=== PATIENT | male | born 1995 | race African-American/Black ===

== ENCOUNTER 2016-04-02 10:02 | Inpatient (IN) | payer OTHER ==
[~2016-04-02] VITALS: Ht 182.9 cm; Wt 69.9 kg
--- NOTE | 2016-04-02 10:39 | ED GI/GU/ABDOMINAL COMPLAINT ---
History of Present Illness General Chief Complaint: Nausea, Vomiting, Diarrhea Stated Complaint: N/V/D Source: patient Exam Limitations: no limitations Allergies Coded Allergies: NO KNOWN ALLERGIES (04/27/13) Reconcile Medications No Known Home Medications Triage Note: 21 YEAR OLD MALE STATES THAT HE HAS HAD N/V/D SINCE SATURDAY AND UNABLE TO EAT OR LAY DOWN WITHOUT VOMITTING, PT STATES THAT HE HAS SPEROCYTOSIS WHICH IS A PROBLEM WITH HIS SPLEEN, PT HAS BEEN HAVING PAIN L SIDE ABD THAT RADIATES UP HIS L SIDE BACK INTO HIS R SHOULDER. SKIN AND SCLERA NOTED TO BE JAUNDICE Triage Nurses Notes Reviewed? yes Onset: Abrupt Duration: day(s): Timing: recent history Quality/Severity: cramping, moderate, severe Location: left upper quadrant Radiation: back, left shoulder Activities at Onset: none No Modifying Factors: none HPI: 21-year-old male comes into emergency room for further evaluation of nausea vomiting diarrhea and has been going on for the past 4 days. Patient has a history of hereditary spherocytosis. Some associated fever chills body aches. Denies any blood in his stool. Denies any urinary symptoms. Denies any other associated symptoms. (YOLANDA KINCAID) Vital Signs & Intake/Output Vital Signs & Intake/Output Vital Signs Date Time Temp Pulse Resp B/P Pulse O2 O2 Flow FiO2 Ox Delivery Rate 04/02 1418 99.6 64 18 145/71 100 04/02 1021 98.4 80 18 149/84 99 Room Air Past History Travel History Traveled to [place] past 21 day No Medical History Any Pertinent Medical History? see below for history Neurological: NONE EENT: NONE Cardiovascular: NONE Respiratory: NONE Gastrointestinal: SPHEROCYTOSIS Hepatic: NONE Renal: NONE Musculoskeletal: NONE Psychiatric: NONE Endocrine: NONE Blood Disorders: NONE Cancer(s): NONE PULP MIXER/Reproductive: NONE Surgical History Surgical History: non-contributory Psychosocial History What is your primary language Greenlandic Tobacco Use: Current Not Daily ETOH Use: denies use Illicit Drug Use: denies illicit drug use Family History Hx Contributory? No (YOLANDA KINCAID) Review of Systems Review of Systems Constitutional: Reports: no symptoms. EENTM: Reports: no symptoms. Respiratory: Reports: no symptoms. Cardiovascular: Reports: no symptoms. GI: Reports: see HPI. Genitourinary: Reports: no symptoms. Musculoskeletal: Reports: no symptoms. Skin: Reports: no symptoms. Neurological/Psychological: Reports: no symptoms. Hematologic/Endocrine: Reports: no symptoms. Immunologic/Allergic: Reports: no symptoms. All Other Systems: Reviewed and Negative (YOLANDA KINCAID) Physical Exam Physical Exam General Appearance: well developed/nourished, no apparent distress, alert Head: atraumatic, normal appearance Eyes: Bilateral: normal appearance, EOMI. Ears, Nose, Throat, Mouth: hearing grossly normal, moist mucous membrane Neck: normal inspection, full range of motion Respiratory: normal breath sounds, no respiratory distress Cardiovascular: regular rate/rhythm Gastrointestinal: normal bowel sounds, soft, tenderness (luq,no splenomegaly appreciate) Back: normal inspection Extremities: normal range of motion Neurologic/Psych: awake, alert, oriented x 3, normal gait Skin: intact, normal color Core Measures ACS in differential dx? No Severe Sepsis Present: No Septic Shock Present: No (YOLANDA KINCAID) Progress Differential Diagnosis: biliary colic, bowel obstruction, cholecystitis, diverticulitis, epididymitis, gastritis, hepatitis, pancreatitis, prostatitis, peptic ulcer, PUD/GERD, perforated viscous, pyelonephritis, SBO, testicular torsion, ureterolithiasis, urinary retention, urethritis, UTI/pyelo Initial ED EKG: none (YOLANDA KINCAID) Plan of Care: Orders Procedure Date/time Status US-COMPLETE ABDOMEN 04/02 1601 Active URINALYSIS 04/02 1545 Active Add-on Test (ER Only) 04/02 1213 Active Add-on Test (ER Only) 04/02 1150 Active TYPE & SCREEN (NOT X-MATCH) 04/02 1150 Complete Add-on Test (ER Only) 04/02 1137 Active RETICULOCYTE COUNT 04/02 1051 Complete LACTIC ACID 04/02 1051 Complete DIRECT BILIRUBIN 04/02 1051 Complete LIPASE 04/02 1035 Complete COMPREHENSIVE METABOLIC PANEL 04/02 1035 Complete CBC WITHOUT DIFFERENTIAL 04/02 1035 Complete AMYLASE 04/02 1035 Complete Laboratory Tests 04/02/16 1051: Anion Gap 11, Estimated GFR > 60, BUN/Creatinine Ratio 16.3, Glucose 99, Lactic Acid 1.0, Calcium 8.9, Total Bilirubin 4.6 H, Direct Bilirubin 0.8 H, AST 89 H, ALT 27, Alkaline Phosphatase 41, Total Protein 7.2, Albumin 4.3, Globulin 2.9 , Albumin/Globulin Ratio 1.5, Amylase 65, Lipase 94, CBC w Diff NO MAN DIFF REQ, RBC 2.79 L, MCV 78.4 L, MCH 27.9, RDW 21.7 H, MPV 10.7 H, Gran % 72.4, Lymphocytes % 16.4 L, Monocytes % 10.4 H, Eosinophils % 0.6, Basophils % 0.2, Absolute Granulocytes 5.7, Absolute Lymphocytes 1.3, Absolute Monocytes 0.8 H, Absolute Eosinophils 0, Absolute Basophils 0, PUBS MCHC 35.6, Retic Count 5.49 H Departure Departure Disposition: STILL A PATIENT Condition: Stable Clinical Impression Primary Impression: Symptomatic anemia Secondary Impressions: Dehydration, Hyponatremia, Thrombocytopenia Referrals: CEDRIC AMBRIZ MD Departure Forms: Customer Survey General Discharge Information Prescriptions: Current Visit Scripts No Known Home Medications Admission Note Spoke With: EBENEZER GONZALEZ,JEROME Documentation of Exam: Documentation of any treatments & extenuating circumstances including Concerns Regarding Discharge (functional status, medication knowledge or non-compliance, living conditions, etc.) that warrant an admission rather than observation: Pt will require IV fluids. IV pain control. Repeat labs. Hematology oncology consultation. Patient may require blood transfusion. High risk. Patient has no follow-up. (YOLANDA KINCAID) PA/MANAGER BASKETBALL Co-Sign Statement Statement: ED Attending supervision documentation- [] I saw and evaluated the patient. I have also reviewed all the pertinent lab results and diagnostic results. I agree with the findings and the plan of care as documented in the PA's/MANAGER BASKETBALL's documentation. [X] I have reviewed the ED Record and agree with the PA's/MANAGER BASKETBALL's documentation. [] Additions or exceptions (if any) to the PAs/MANAGER BASKETBALL's note and plan are summarized below: [] (CAROLIN GONZALEZ,LAURA Chaidez)
[2016-04-02 11:14] LABS: ABSOLUTE BASOPHIL COUNT 0 /CUMM (0.0-0.2); ABSOLUTE EOSINOPHIL COUNT 0 /CUMM (0.0-0.7); BASOPHIL % 0.2 % (0.0-2.0); EOSINOPHIL % 0.6 % (0-5); HEMATOCRIT 21.8 % (42-52); MEAN CORPUSCULAR HGB 27.9 PG (27.0-31.0); MEAN CORPUSCULAR HGB CONC 35.6 G/DL (33.0-37.0); MEAN CORPUSCULAR VOLUME 78.4 FL (80.0-94.0); MEAN PLATELET VOLUME 10.7 FL (7.4-10.4); RBC DISTRIBUTION WIDTH 21.7 % (11.5-14.5); RED BLOOD CELL CT 2.79 /CUMM (4.70-6.10); WHITE BLOOD CELL COUNT 7.9 /CUMM (4.8-10.8)
[2016-04-02 11:29] LABS: ABSOLUTE GRANULOCYTE CT 5.7 /CUMM (1.4-6.5); ABSOLUTE LYMPH COUNT 1.3 /CUMM (1.2-3.4); ABSOLUTE MONOCYTE COUNT 0.8 /CUMM (0.10-0.60)
[2016-04-02 11:34] LABS: PLATELET COUNT 113 /CUMM (130-400)
[2016-04-02 11:35] LABS: GRANULOCYTE % 72.4 % (42.2-75.2)
--- NOTE | 2016-04-02 16:05 | History & Physical ---
YURIY GONZALEZ,LORENZO 04/02/16 1605: General Information and HPI MD Statement: I have seen and personally examined MENG UMAÑA and documented this H&P. The patient is a 21 year old M who presented with sore throat, fever, nausea, vomiting. Source of Information: patient Exam Limitations: no limitations History of Present Illness: 21 yo M with pmh of heriditary spherocytosis came into the emergency department with complaints of sore throat, nausea, vomiting, diarrhea, fever since . According to the patient, patient was in his usual state of health until 10 PM, when he started having sore throat. Later on during the night, he started having nausea and vomiting almost 30 times, which was thin, watery, greenish, nonbloody, associated with 7/10 abdominal pain on the left side of his abdomen. He vomited twice yesterday, and once today. Since then, he also started having loose stools, multiple times, nonbloody, watery in consistency. All this was associated with fever, max temperature not measured, and chills. He also mentions that he has nonproductive cough. On questioning, he admitted to having shortness of breath when he walked even for a few meters, which went away upon resting. It was also associated with palpitation. But no chest pain, chest discomfort or chest heaviness. He denied any headache, dizziness, runny nose, ear pain, ear discharge, nasal congestion, hoarseness of voice, difficulty urinating, change in color or consistency of urine, or swelling of legs. No sick contacts, although his siblings have started catching up symptoms of nausea, vomiting, fever since today. No history of recent travel. No recent medication. Of note he hasn't seen a primary care physician since he turned 18, and does not have a scout executive to follow. His last hospital visit was at [facility] for strep throat. Family history of Sickle Cell Disease (Father, ). Allergies/Medications Allergies: Coded Allergies: NO KNOWN ALLERGIES (04/27/13) Home Med list No Known Home Medications Past History Travel History Traveled to [place] past 21 day No Medical History Neurological: NONE EENT: NONE Cardiovascular: NONE Respiratory: NONE Gastrointestinal: SPHEROCYTOSIS Hepatic: NONE Renal: NONE Musculoskeletal: NONE Psychiatric: NONE Endocrine: NONE Blood Disorders: NONE Cancer(s): NONE GAME SHOW HOST/Reproductive: NONE Surgical History Surgical History: non-contributory Past Family/Social History Psychosocial History Where do you live? Home Who Do You Live With? parent, siblings Primary Language: Danish Smoking Status: Current Everyday Smoker (1 pack year smoking history) ETOH Use: occasional use (rum or beer occassionally) Illicit Drug Use: marijuana (daily) Functional Ability ADLs Independent: dressing, eating, toileting, bathing. Ambulation: independent IADLs Independent: shopping, housework, finances, food prep, telephone, transportation , medication admin. Sexual History Sexually Active Yes Review of Systems Review of Systems Constitutional: Reports: see HPI, chills, diaphoresis, fever, malaise, weakness. Denies: unexplained weight loss. EENTM: Reports: no symptoms, throat pain (on ). Cardiovascular: Reports: palpitations. Denies: chest pain, edema, orthopena, peripheral edema, syncope. Respiratory: Reports: cough, short of breath (on short walks few metres). Denies: hemoptysis , orthopnea, sputum production, stridor, wheezing. GI: Reports: abdominal pain (left side), diarrhea, nausea, changes in stool, vomiting. Denies: bloating, constipation, distention, melena, bloody stool. Genitourinary: Reports: no symptoms. Denies: dysuria, frequency, hematuria, hesitation. Musculoskeletal: Reports: see HPI, joint pain, muscle pain. Skin: Reports: no symptoms. Neurological/Psychological: Reports: no symptoms. Hematologic/Endocrine: Reports: no symptoms. Immunologic/Allergic: Denies: splenectomy, lymphadenopathy. All Other Systems: Reviewed and Negative Exam & Diagnostic Data Last 24 Hrs of Vital Signs/I&O Vital Signs Date Time Temp Pulse Resp B/P Pulse O2 O2 Flow FiO2 Ox Delivery Rate 04/02 1418 99.6 64 18 145/71 100 04/02 1021 98.4 80 18 149/84 99 Room Air Intake & Output 04/02 1600 04/02 0800 04/02 0000 Intake Total 1000 Output Total Balance 1000 Intake, IV 1000 Patient 70.307 kg Weight Physical Exam General Appearance Alert, Oriented X3, Cooperative, No Acute Distress Last 24 Hrs of Labs/Zeus: Laboratory Tests 04/02/16 1051: Anion Gap 11, Estimated GFR > 60, BUN/Creatinine Ratio 16.3, Glucose 99, Lactic Acid 1.0, Calcium 8.9, Total Bilirubin 4.6 H, Direct Bilirubin 0.8 H, AST 89 H, ALT 27, Alkaline Phosphatase 41, Total Protein 7.2, Albumin 4.3, Globulin 2.9 , Albumin/Globulin Ratio 1.5, Amylase 65, Lipase 94, CBC w Diff NO MAN DIFF REQ, RBC 2.79 L, MCV 78.4 L, MCH 27.9, RDW 21.7 H, MPV 10.7 H, Gran % 72.4, Lymphocytes % 16.4 L, Monocytes % 10.4 H, Eosinophils % 0.6, Basophils % 0.2, Absolute Granulocytes 5.7, Absolute Lymphocytes 1.3, Absolute Monocytes 0.8 H, Absolute Eosinophils 0, Absolute Basophils 0, PUBS MCHC 35.6, Retic Count 5.49 H Diagnostic Data EKG Results Normal sinus rhythm, rate 66, QTc 441, LA interval 132, no ST T changes CXR Results No acute disease. DICTATED BY: LINDSAY LAMBERT MD DATE/TIME DICTATED:04/02/161835 FUNDRAISING SPECIALIST:TOPHER DATE/TIME TRANSCRIBED:04/02/161835 Other Results Physical examnination: General: well nourished patient not in distress Head: Normocephalic, atraumatic Eyes: Pupils normal in size, regular, reacting to light and accommodation, EOM normal, JAUNDICE PRESENT Ears: B/l normal on inspection Nose: Normal on inspection Throat/mouth: Moist mucosa Neck: Supple, full range of motion, no thyromegaly Heart: Regular rate, regular rhythm Lung: OCCASSIONAL BIBASILAR CRACKLES HEARD, NO WHEEZE Abd: Soft, MILD TENDERNESS OVER LEFT UPPER QUADRANT, SPLEEN TIP ?PALPABLE, LEFT COSTOVERTEBRAL ANGLE TENDERNESS PRESENT, no distention appreciated Back: Normal range of motion Extremities: Normal knee exam bilaterally, [no] pedal edema, Distal neurovascular intact Neurologic: Alert, oriented x3, Cranial exam grossly intact, Speech is clear and coherent Skin: Warm and dry Psychiatric: Calm, cooperative, coherant USG Abdomen complete: IMPRESSION: - Limited assessment of the gallbladder as the patient just ate. There is gallbladder sludge without definite sonographic evidence of acute cholecystitis. - Splenomegaly. DICTATED BY: LAURA MORA MD DATE/TIME DICTATED:04/02/161651 FUNDRAISING SPECIALIST:TOPHER DATE/TIME TRANSCRIBED:04/02/161651 Assessment/Plan Assessment: 21 yo M with pmh of heriditary spherocytosis came into the emergency department with complaints of sore throat, nausea, vomiting, diarrhea, fever, SOB since evening. At presentation, his temperature was 98.4, pulse rate 80, respiration 18, blood pressure 149/84, pulse oximetry 99% on room air. EKG was normal. Chest x-ray normal. Lab was significant for anemia with hemoglobin 7.8, hematocrit 21.8, MCV 78.4, MCH 27.9, RDW 21.7, platelet count 113, reticulocyte count 5.490. He was slightly hyponatremic with sodium 132, potassium 3.6, chloride 90, carbon dioxide 32, anion gap 11, BUN 13, creatinine 0.8, glucose 99. Further, liver function was slightly deranged with total bilirubin 4.6, direct bilirubin 0.8, AST 89, AST 27, ALP 41. Amylase and lipase were normal with 65, 94 respectively. Urine is normal, other than urine urobilinogen 4.0, small urine Hb, and trace urine protein. Currently, he is being managed general medical floor for the following issues: #Possible acute gastro-enteritis His clinical picture with sudden onset of fever, nausea, vomiting, diarrhea, is suggestive of acute gastroenteritis. Although he does not have a history of recent travel or sick contacts with similar illnesses, gastroenteritis is still a possibility. 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 He is currently SOB while going upto the restroom nearby. -Labs point to hemolytic anemia picture. (haptoglobin pending) -USG abdomen shows splenomegaly -His all three blood cell lines are decreased with splenomegaly, i.e. hypersplenism -Currently, his Hb is 7.8 with hct 21.8. Need to monitor this, as further decrease can warrant blood transfusion. Need to discuss this with attending later. -Blood type and cross match ordered, in case BT is required. -Hematology consultation in the morning. #Diet: Clear liquid diet #DVT ppx: Alps #Code status: Full code As Ranked By This Provider Problem List: 1. Acute gastroenteritis 2. Hemolytic anemia 3. Hereditary spherocytic hemolytic anemia Core Measures/Miscellaneous Acute Coronary Syndrome ACS Diagnosis: No Cerebrovascular Accident CVA/TIA Diagnosis: No Congestive Heart Failure CHF Diagnosis: No Venous Thromboembolism VTE Risk Factors: Smoking VTE Prophylaxis Ordered Inpt: Mechanical (ALPS/TEDS) No Mech VTE prophylaxis d/t: No contraindications No VTE Pharm Prophylaxis d/t: Blood coag disorder VTE Diagnosis: No VTE Type: NONE VTE Confirmed by (Test): NONE Severe Sepsis Severe Sepsis Present: No Septic Shock Septic Shock Present: No Miscellaneous Documentation Attending Case Discussed With: EBENEZER GONZALEZ,JEROME Primary Care Physician: PATIENT HAS NO PRIMARY CARE DR Patient sees these Specialists Internal Medicine Level of Patient Care: General Medicine NEHEMIAHMOOK 04/02/16 1607: Resident Review Statement Resident Statement: examined this patient, discussed with internet systems administrator, agreed with internet systems administrator Other Findings: Patient is 21 year old male with PMH of hereditary spherocytosis, disgnosed at 6 years of age, came to ER with chief complain of nausea, vomiting, diarrhea and sore throat. Patient reports that he was in his usual state of health last week on 03/28 when he developed sore throat and started vomiting and having abdominal pain the next day. Patient states that he is also having brown, non bloody loose stools from the same time duration. He had 2 episodes of vomiting yesterday and one this morning. Non bloody greenish in color. He reports that his abdominal pain is located in left upper quadrant radiating to back. He reports that he feels pain in the similar location whenever he gets ill. Last time he had similar complains was last year ( 2-3 time / year). He reports that his sister and brother at home are also having nausea and vomiting. Patient has been unable to keep anything down since this morning. Denies eating any food from outside. Patient also reports of exertional dysnea since saturday, occasional dry cough however no throat congestion. He has not checked his temperature at home but feels warm and reports chills. Patient denies any chest pain, headache, dizziness, burning micturation etc. Vitals and labs as above Usg abd no cholecystitis, evidence of spleenonegaly CXR done for b/l basilar crackles is clear Assessment and plan: Admit to general medicine floor fr 24 hr observation. Will hydrate with IV NS @ 120 cc/hr Zofran q6 prn for nausea will check rapid flu haptoglobin will send stool studies for ova/parasite/culture/ph and get BC x 2 as patient had fever and chills will chk cbc and BEP in am DVT ppx- ALPS. Patient is full code Patient is amblatory. EBENEZER GONZALEZ,JEROME 04/02/16 2154: Attending MD Review Statement Attending Statement Attending MD Statement: examined this patient, discuss w/resident/PA/TECHNICAL ILLUSTRATIONS MAP INKER, agreed w/resident/PA/TECHNICAL ILLUSTRATIONS MAP INKER, reviewed EMR data (avail) Attending Assessment/Plan: Patient seen and examined. Plan of care discussed with the medical team and the patient. Available lab work and radiology test reports were reviewed. In summary 21 old male with hx of spherocytosis not being actively followed came with sign and symptoms of acute gastroentritis. had recent exposure to person sich with similar issues. Exam shows stable VS and slightly tender LUQ. Labs show anemia and hyponatremia. CXr is negative and US abod shows gall bladder sludge and splenomegaly. A/P: - acute gastroentiris - anemia likley chronic - hereditary spherocytosis - hyponatremia -dehydration Plan: - IV saline - pain control - recheck CBC, Na,bun and cr in am - may benefit from hemetology follow up as out pt - pt will need isolation as per infection control guidelines
--- NOTE | 2016-04-02 17:03 | ULTRASOUND REPORT ---
US ABDOMEN COMPLETE CLINICAL INFORMATION: Abdominal pain.. COMPARISON: None available. TECHNIQUE: Real-time imaging of the abdominal viscera. FINDINGS: PANCREAS: Pancreatic body and tail are obscured by bowel gas. The remainder of the pancreas is unremarkable. ABDOMINAL AORTA: The proximal segment is normal in caliber. INFERIOR VENA CAVA: Visualized portions are normal. LIVER: Normal. The liver demonstrates normal size, contour and echogenicity. No focal lesion or intrahepatic biliary duct dilatation. GALLBLADDER: The gallbladder is contracted and limitedly assessed. There is echogenic bile within the gallbladder lumen. No pericholecystic fluid. No tenderness within the gallbladder fossa. Gallbladder wall thickness is not diagnostically assessed secondary to gallbladder contraction. COMMON BILE DUCT: Normal in caliber measuring 0.3 cm in diameter. RIGHT KIDNEY: Normal. No hydronephrosis. No renal calculi or focal parenchymal lesions. The kidney measures 11.5 cm in maximum dimension. LEFT KIDNEY: Normal. No hydronephrosis. No renal calculi or focal parenchymal lesions. The kidney measures 14.0 cm in maximum dimension. SPLEEN: The spleen is enlarged and measures 15.5 cm in maximum dimension. Splenic echogenicity appears normal. FREE FLUID: None. IMPRESSION: - Limited assessment of the gallbladder as the patient just ate. There is gallbladder sludge without definite sonographic evidence of acute cholecystitis. - Splenomegaly.
--- NOTE | 2016-04-02 18:36 | PN- Student ---
Subjective Subjective: Source: Patient History of Present Illness: Mr. Regalado is a 21 y/o M patient that came to the hospital due to several days of multiple episodes of vomiting and diarrhea that started on the last (03/29/2016). The patient has a past medical history of Hereditary Spherocytosis ( HS). Mr. Regalado specified that the symptoms started with a soar throat and that they eventually progressed to the vomiting/diarrhea spells. He estimated that he has vomited around 30 times since the symptoms started. Today he is also complaining of LUQ pain that is sharp in character, radiated to the back and the neck (Pain Scale: 7/10). The patient denies any home medications to treat the HS and stated that he experiences similar episodes to this one at least 2 times per year. The patient also mentioned that the color of his urine has been darker than usual ever since the symptoms started. Associated with the above mentioned symptoms is also a dry/non productive cough . The patient is sexually active with one partner, drinks alcohol occasionally and smokes cigaretts and marijuana on a daily basis. The patient also mentioned that his siblings (brother & sister) have both experienced similar flu-like symptoms on the past few days (vomiting, diarrhea, fever) but non of them developed the LUQ pain. Allergies/Medications: Allergies -No known allergies. Current Medications -No home medications Past Medical Hx: Travel History Patient denies any trips outside of the [facility]. Medical History Neurological- NONE Cardiovascular- Hx of Hereditary Spherocytosis Respiratory- NONE Gastrointestinal- NONE Hepatic- NONE Renal- NONE Psychiatric- NONE Endocrine- NONE Surgical History No surgeries Family History: FATHER Sickle Cell Anemia (Diseased) MOTHER Well SIBLINGS Well; Have been experiencing flu-like symptoms this week Psychosocial History: Where do you live? Home Who Do You Live With? Stepfather, Mother, Brother, Sister Services at Home: None Primary Language: Slovenian Smoking Status: Smokes ~10 cigarettes/day (2 years of Smoking) EtOH Use: Occational drinker Illicit Drug Use: Marijuana (Smokes on paper; around 4 cigarettes/day) Functional Ability: ADLs Independent: dressing, eating, toileting, bathing. Ambulation: independent IADLs Independent: shopping, housework, finances, food prep, telephone, transportation , medication admin. Review of Systems: General: Patient is in proper attire, alert and without any signs of distress. The patient has had fever, night sweats and chills since the symptoms started. HEENT: Patient denies any visual changes or dizzines. Mild scleral Jaundice. Cardiovascular: Patient denies any palpitations. Respiratory: Refer to HPI. GI: Refer to HPI. Genitourinary: Refer to HPI. Skin: NONE Upper Limbs: NONE. Lower Limbs: NONE. MSK: NONE Objective Objective: Current Medications Sig/Addi Start time Last Medication Dose Route Stop Time Status Admin Morphine Sulfate 0 .STK-MED ONE 04/02 1805 DC .ROUTE Morphine Sulfate 2 MG Q8P PRN 04/02 1730 AC IV Morphine Sulfate 4 MG ONCE ONE 04/02 1545 DC 04/02 IV 04/02 1546 1810 Ondansetron HCl 0 .STK-MED ONE 04/02 1215 DC .ROUTE Ondansetron HCl 4 MG ONCE ONE 04/02 1200 DC 04/02 IV 04/02 1201 1219 Sodium Chloride 1,000 ML Q10H 04/02 1615 AC 04/02 IV 1810 Sodium Chloride 1,000 ML BOLUS ONE 04/02 1200 DC 04/02 IV 04/02 1259 1219 Vital Signs Date Time Temp Pulse Resp B/P Pulse O2 O2 Flow FiO2 Ox Delivery Rate 04/02 1802 98.8 67 18 141/79 99 Room Air 04/02 1418 99.6 64 18 145/71 100 Intake & Output 04/02 1600 Intake Total 1000 Output Total Balance 1000 Intake, IV 1000 Patient 155 lb Weight Physical Examination: General: 21 y/o patient with no signs of distress, mild scleral jaundice and LUQ pain that radiates to the back and neck ipsilaterally. HEENT: PERRLA, mild scleral jaundice on both eyes. Neck: Not assessed Mouth: No signs of central cyanosis. Lungs: Expiratory wheezes were appreciated throughout the lungs. CV: S1, S2 sounds were heard; strong S2 closure; no murmurs were appreicated. GI: Upon light/deep palpation splenomegaly was felt. The patient was not perceived as guarding. No hepatomegaly was palpated or any other abdominal masses. Genitourinary: Not assessed MSK: Not assessed Upper Extremities: No signs of peripheral cyanosis or finger clubbing. Lower Extremities: No signs of edema or changes in temperature. Neurological: Normal Speech. Additional Notes: [place] patient is anemic due to HS and his MCV is microcytic. Results Results: Laboratory Tests 04/02/16 1801: Urine Color Pending, Urine Clarity Pending, Urine pH Pending, Ur Specific [place] Pending, Urine Protein Pending, Urine Ketones Pending, Urine Nitrite Pending, Urine Bilirubin Pending, Urine Urobilinogen Pending, Ur Leukocyte Esterase Pending, Ur Microscopic SEDIMENT EXAMINED, Urine RBC Pending, Urine Hemoglobin Pending, Urine Glucose Pending 04/02/16 1051: Haptoglobin Pending 04/02/16 1051: Anion Gap 11, Estimated GFR > 60, BUN/Creatinine Ratio 16.3, Glucose 99, Lactic Acid 1.0, Calcium 8.9, Total Bilirubin 4.6 H, Direct Bilirubin 0.8 H, AST 89 H, ALT 27, Alkaline Phosphatase 41, Total Protein 7.2, Albumin 4.3, Globulin 2.9 , Albumin/Globulin Ratio 1.5, Amylase 65, Lipase 94, CBC w Diff NO MAN DIFF REQ, RBC 2.79 L, MCV 78.4 L, MCH 27.9, RDW 21.7 H, MPV 10.7 H, Gran % 72.4, Lymphocytes % 16.4 L, Monocytes % 10.4 H, Eosinophils % 0.6, Basophils % 0.2, Absolute Granulocytes 5.7, Absolute Lymphocytes 1.3, Absolute Monocytes 0.8 H, Absolute Eosinophils 0, Absolute Basophils 0, PUBS MCHC 35.6, Retic Count 5.49 H Microbiology 04/02 1610 STOOL: Cryptosporidium Antigen - ORD 04/02 1610 STOOL: Giardia Antigen (MATTHEW) - ORD 04/02 1610 STOOL: Stool Culture - ORD 04/02 1605 STOOL: Clostridium difficile Toxin A & B - ORD Assessment/Plan Assessment: Mr Regalado is a 21 y/o M that came in for multiple episodes of emesis and diarrhea associated with fever, muscle aches, chills and a dry cough. The patient has a history of Hereditary Spherocytosis and currently is presenting with LUQ pain that radiates to the ipsilateral back and neck. The patient has had around 30 bouts of emesis since the symptoms started the past . Physical examination revealed signs of scleral jaundice and splenomegaly. DDx: Based on the clinical presentation the following preliminary diagnosis could be given; Viral gastroenteritis (Rationale: the symptoms are consistent with this diagnosis and there has been spreading in the household between the siblings, which makes it highly suspicious of it) vs. Influenza (Rationale: the patient has part of the constitutional symptoms related to it but the majority of the signs are associated with the GIT rather than the URT.) Problem List: 1) Vomiting/Diarrhea 2) Splenomegaly 3) LUQ Pain 4) Jaundice Plan: - Admitt the patient for observation. - Order a Abdominal Sonogram to assess the splenic size and vascularity. - Administer IV fluids to establish proper hemodynamics. - Administer Azithromycin (500mg IV). - Administer Ondansetron to control emesis (8mg IV q8hrs prn). - Schedule Heme/Onc visit to assess HS. Assessment/Plan Assessment: Assessment: Ms. Martin is a 50 y/o F with a history of Asthma since childhood. She has been a smoker since she was 9 years old and currently smokes 1 pack/day. She has productive cough and approximates to be coughing 1/2 a cup per day. The patient has wheezes on expiration that could be listened throughout the lungs. DDx: Based on the clinical presentation the following preliminary diagnosis could be given; Community-Acquired Pneumonia (Rationale: patient has productive cough that has persisted for days and it's worsening. CXR reflects findings associated with the Dx due to consolidation.) vs. Mycoplasma pneumonia (Rationales: CXR doesn't reveal patchy infiltrates and the patient goes SOB with mild exertion which is not consistent with a Dx of walking pneumonia) vs. Asthma exacerbation (Rationale: the symptoms have been persisting and worsening for days which is not diagnostic of an asthma attack). Problem List: 1) Shortness of Breath 2) Pulmonary Congestion 3) Chest tenderness Plan: Plan: - Start the patient on Azithromycin 500mg PO X 1/day. - Schedule a consult with the Loader Engineer. - Administer Ramelteon (8mg PO) to sleep. - Order CBC to assess WBC's - Order sputum and blood cultures to obtain Microbiological Etiology.
--- NOTE | 2016-04-02 18:41 | RADIOLOGY REPORT ---
EXAMINATION: XR CHEST CLINICAL INFORMATION: Bilateral crackles with difficulty breathing COMPARISON: None. TECHNIQUE: PA and lateral views of the chest were obtained. FINDINGS: No significant abnormality is noted involving the heart, lungs, mediastinum, bony thorax, or soft tissues. IMPRESSION: No acute disease.
[2016-04-02 22:43] VITALS: BP 141/73
--- NOTE | 2016-04-03 05:58 | PN- Housestaff ---
YURIY GONZALEZ,LORENZO 04/03/16 0557: Subjective Follow-up For: Acute gastroenteritis, symptomatic hemolytic anemia Complaints: no complaints, "getting better" Subjective: I followed up and examined the patient today. He is sitting comfortably on his bed, is not in any acute distress, and does not have any complaints currently. He said his nausea has significantly decreased and he does not have any loose stools anymore. In fact, he hasn't passed stool since he got admitted here. No fever or chills overnight, although he still has some nausea, he hasn't vomited. He still gets short of breath when he goes to the restroom, but denies any chest pain, palpitation, dizziness along with it. Review of Systems Constitutional: Reports: no symptoms. EENTM: Reports: no symptoms. Cardiovascular: Reports: no symptoms. Respiratory: Reports: no symptoms. Gastrointestinal: Reports: no symptoms, nausea. Genitourinary: Reports: no symptoms. Musculoskeletal: Reports: no symptoms. Skin: Reports: no symptoms. Neurological/Psychological: Reports: no symptoms. Hematologic/Endocrine: Reports: no symptoms. Objective Last 24 Hrs of Vital Signs/I&O Vital Signs Date Time Temp Pulse Resp B/P Pulse O2 O2 Flow FiO2 Ox Delivery Rate 04/03 0609 98.0 84 18 141/68 98 Room Air 04/02 2243 98.8 76 18 141/73 99 Room Air 04/02 2236 98.8 76 18 141/73 99 Room Air 04/02 1802 98.8 67 18 141/79 99 Room Air 04/02 1418 99.6 64 18 145/71 100 04/02 1021 98.4 80 18 149/84 99 Room Air Intake & Output 04/03 0800 04/03 0000 04/02 1600 Intake Total 800 1000 Output Total 400 Balance 400 1000 Intake, IV 300 1000 Intake, Oral 500 Output, Urine 400 Patient 70.307 kg 70.307 kg Weight Physical Exam General Appearance: Alert, Oriented X3, Cooperative, No Acute Distress Other Physical Findings: Physical examnination: General: well nourished patient not in distress Head: Normocephalic, atraumatic Eyes: Pupils normal in size, regular, reacting to light and accommodation, EOM normal, JAUNDICE PRESENT Ears: B/l normal on inspection Nose: Normal on inspection Throat/mouth: Moist mucosa Neck: Supple, full range of motion, no thyromegaly Heart: Regular rate, regular rhythm Lung: OCCASSIONAL BIBASILAR CRACKLES HEARD, NO WHEEZE Abd: Soft, MILD TENDERNESS OVER LEFT UPPER QUADRANT, SPLEEN TIP ?PALPABLE, LEFT COSTOVERTEBRAL ANGLE TENDERNESS PRESENT, no distention appreciated Back: Normal range of motion Extremities: Normal knee exam bilaterally, [no] pedal edema, Distal neurovascular intact Neurologic: Alert, oriented x3, Cranial exam grossly intact, Speech is clear and coherent Skin: Warm and dry Psychiatric: Calm, cooperative, coherant Current Medications: Current Medications Sig/Addi Start time Last Medication Dose Route Stop Time Status Admin Influenza Virus 0.5 ML ONCE ONE 04/02 2029 DC 04/02 Vaccine IM 04/02 Morphine Sulfate 0 .STK-MED ONE 04/03 0232 DC .ROUTE Morphine Sulfate 2 MG ONCE ONE 04/03 0230 DC 04/03 IV 04/03 0231 0233 Morphine Sulfate 0 .STK-MED ONE 04/02 1805 DC .ROUTE Morphine Sulfate 2 MG Q8P PRN 04/02 1730 AC IV Morphine Sulfate 4 MG ONCE ONE 04/02 1545 DC 04/02 IV 04/02 1546 1810 Ondansetron HCl 0 .STK-MED ONE 04/02 2136 DC .ROUTE Ondansetron HCl 4 MG Q8P PRN 04/02 2030 AC 04/02 IV 2138 Ondansetron HCl 0 .STK-MED ONE 04/02 1215 DC .ROUTE Ondansetron HCl 4 MG ONCE ONE 04/02 1200 DC 04/02 IV 04/02 1201 1219 Sodium Chloride 1,000 ML Q10H 04/02 1615 AC 04/02 IV 1810 Sodium Chloride 1,000 ML BOLUS ONE 04/02 1200 DC 04/02 IV 04/02 1259 1219 Last 24 Hrs of Lab/Zeus Results Last 24 Hrs of Labs/Mics: Laboratory Tests 04/03/16 0609: Sodium Pending, Potassium Pending, Chloride Pending, Carbon Dioxide Pending, Anion Gap Pending, BUN Pending, Creatinine Pending, BUN/Creatinine Ratio Pending , CBC w Diff Pending, WBC Pending, RBC Pending, Hgb Pending, Hct Pending, MCV Pending, MCH Pending, RDW Pending, Plt Count Pending, MPV Pending, PUBS MCHC Pending 04/02/16 1801: Urine Color YEL, Urine Clarity CLEAR, Urine pH 6.5, Ur Specific [place] 1.010, Urine Protein TRACE H, Urine Ketones NEG, Urine Nitrite NEG, Urine Bilirubin NEG, Urine Urobilinogen 4.0 H, Ur Leukocyte Esterase NEG, Ur Microscopic SEDIMENT EXAMINED, Urine RBC 1-3, Urine WBC 1-3 H, Urine Hemoglobin SMALL H, Urine Glucose NEG 04/02/16 1051: Haptoglobin Pending 04/02/16 1051: Anion Gap 11, Estimated GFR > 60, BUN/Creatinine Ratio 16.3, Glucose 99, Lactic Acid 1.0, Calcium 8.9, Total Bilirubin 4.6 H, Direct Bilirubin 0.8 H, AST 89 H, ALT 27, Alkaline Phosphatase 41, Total Protein 7.2, Albumin 4.3, Globulin 2.9 , Albumin/Globulin Ratio 1.5, Amylase 65, Lipase 94, CBC w Diff NO MAN DIFF REQ, RBC 2.79 L, MCV 78.4 L, MCH 27.9, RDW 21.7 H, MPV 10.7 H, Gran % 72.4, Lymphocytes % 16.4 L, Monocytes % 10.4 H, Eosinophils % 0.6, Basophils % 0.2, Absolute Granulocytes 5.7, Absolute Lymphocytes 1.3, Absolute Monocytes 0.8 H, Absolute Eosinophils 0, Absolute Basophils 0, PUBS MCHC 35.6, Retic Count 5.49 H Microbiology 04/02 2235 BLOOD: Blood Culture - RECD 04/02 222 BLOOD: Blood Culture - RECD 04/02 1610 STOOL: Cryptosporidium Antigen - COLB 04/02 1610 STOOL: Giardia Antigen (ZEUS) - COLB 04/02 1610 STOOL: Stool Culture - COLB 04/02 1605 STOOL: Clostridium difficile Toxin A & B - COLB Assessment/Plan Assessment: 21 yo M with pmh of heriditary spherocytosis came into the emergency department with complaints of sore throat, nausea, vomiting, diarrhea, fever, SOB since evening. Currently, he is being managed general medical floor for the following issues: #Possible acute gastro-enteritis His clinical picture with sudden onset of fever, nausea, vomiting, diarrhea, is suggestive of acute gastroenteritis. He does not have a history of recent travel or sick contacts with similar illnesses. -Continue IV Zofran for nausea -Continue IV fluids to replete the loss, alowly advance diet -Continue Morphine for pain management -Stool test to explore the etiology of gastroenteritis. Patient hasn't had loose stools since he came in here, so sample is still pending for the test. 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 He is currently SOB while going upto the restroom nearby. -Labs point to hemolytic anemia picture. (haptoglobin pending) -USG abdomen shows splenomegaly -His all three blood cell lines are decreased with splenomegaly, i.e. hypersplenism -Currently, his Hb is 7.8 with hct 21.8. Need to monitor this, as further decrease can warrant blood transfusion. Need to discuss this with attending later. -Blood type and cross match ordered yesterday. Consent obtained after explainig about the transfusion. Transfusing 2 units of packed RBCs, over 4 hours each. -Hematology consultation appreciated. Patient talked about need of splenectomy in future as an outpatient. He was given information about it. Stucco Applicator suggested vaccinations (pneumococcal, meningococcal, and Hib) before splenectomy. CDC recommendations and Uptodate checked. It has to be given >=14 days before splenectomy. -Vaccines have been ordered accordingly. Patient explained about the vaccination and agrees to the plan. Of note: Schedule of vaccination is as follows: -Only one dose of 0.5ml of IM Hib vaccine NOW. (Total one shot only) -Fisrt dose of 0.5ml of IM Menincococcal conjugate vaccine (Menveo, or Menactra per CDC recommendation) NOW and SECOND DOSE TWO MONTHS APART. (Total two shots) -First dose of PCV13 NOW, followed in 8 weeks by PPSV23 first dose. Then, second dose of PPSV23 at least five years after the first dose of PPSV23. (Total three shots) #Diet: Clear liquid diet #DVT ppx: Alps #Code status: Full code Problem List: 1. Acute gastroenteritis 2. Hemolytic anemia 3. Hereditary spherocytic hemolytic anemia 4. Hyponatremia Pain Ratin Pain Location: left upper abdomen quadrant radiating to back, and left shoulder Pain Goal: Remain pain free Pain Plan: morphine prn Tomorrow's Labs & Rationales: CBC, AFTER TRANSFUSION LFT to check if ongoing hemolysis CHRISTINE ZAYAS MD 04/03/16 1442: Attending MD Review Statement Attending Statement Attending MD Statement: examined this patient, discuss w/resident/PA/FOOD PRESERVATION SCIENTIST, agreed w/resident/PA/FOOD PRESERVATION SCIENTIST, reviewed EMR data (avail) Attending Assessment/Plan: 21M PMH hereditary spherocytosis and ?sickle cell presenting with 4 days of intractable nausea, vomiting and diarrhea in the setting of viral gastroenteritis with dehydration, generalized weakness, and malaise. Patient improved today but still feels weak, no longer having diarrhea. Afebrile, stable vitals. Hgb has dropped to 6.3 with evidence of hemolytic anemia on labs. He describes dyspnea with exertion and fatigue. Cultures negative. 1. Acute viral gastroenteritis 2. Hemolytic anemia 3. Symptomatic anemia 4. Hereditary spherocytosis Plan - Continue IV hydration - Check haptoglobin and LDH - Obtain records from [place] - Follow hematology recommendations - Transfuse 1 unit pRBC - Follow cultures - Monitor Hgb - No antibiotics - DVT PPx
[2016-04-03 06:21] LABS: ABSOLUTE BASOPHIL COUNT 0.1 /CUMM (0.0-0.2); ABSOLUTE EOSINOPHIL COUNT 0 /CUMM (0.0-0.7); ABSOLUTE GRANULOCYTE CT 4.6 /CUMM (1.4-6.5); ABSOLUTE LYMPH COUNT 4.2 /CUMM (1.2-3.4); ABSOLUTE MONOCYTE COUNT 0.7 /CUMM (0.10-0.60); BASOPHIL % 0.7 % (0.0-2.0); EOSINOPHIL % 0.2 % (0-5); GRANULOCYTE % 47.9 % (42.2-75.2); MEAN CORPUSCULAR HGB 27.6 PG (27.0-31.0); MEAN CORPUSCULAR HGB CONC 35.3 G/DL (33.0-37.0); MEAN PLATELET VOLUME 9.9 FL (7.4-10.4); PLATELET COUNT 102 /CUMM (130-400); RBC DISTRIBUTION WIDTH 21.7 % (11.5-14.5); RED BLOOD CELL CT 2.29 /CUMM (4.70-6.10)
[2016-04-03 06:30] LABS: HEMATOCRIT 17.8 % (42-52)
[2016-04-03 06:36] LABS: WHITE BLOOD CELL COUNT 9.8 /CUMM (4.8-10.8)
--- NOTE | 2016-04-03 09:02 | PN- Student ---
Subjective Subjective: Source: Patient History of Present Illness: Follow up visit for: Acute Gastroenteritis & anemia. I followed up the patient and today denies any nausea, diarrhea or bouts of emesis. He mentioned to feel slightly dizy when he sit up from supine position to be evaluated. He stated that he had a good night sleep and that he has only be having liquid as diest (Farzana farhat & Apple Juice). The LUQ Pain has decreased significantly based on his comparison with yesterday, however the neck pain has been sustained. He bent to the left side and mentioned that has he did it the pain on the shoulder increased. The patient was informed that he needed to have a blood transfusion today since his HgB levels and overall hematological values were low; the patient consented to the indicated paperwork. Jessee patient also was informed that he needed to consent to an Authorization of [facility] Information Disclosure Form in order for us to acquire information on his previous diagnosis; the patient consented to the indicated paperwork. Allergies/Medications: Allergies -No known allergies. Current Medications -No home medications Past Medical Hx: Travel History Patient denies any trips outside of the [facility]. Medical History Neurological- NONE Cardiovascular- Hx of Hereditary Spherocytosis Respiratory- NONE Gastrointestinal- NONE Hepatic- NONE Renal- NONE Psychiatric- NONE Endocrine- NONE Surgical History No surgeries Family History: FATHER Sickle Cell Anemia (Diseased) MOTHER Well SIBLINGS Well; Have been experiencing flu-like symptoms this week Review of Systems: General: Patient is in proper attire, alert and without any signs of distress. The patient has had fever and chills since the symptoms started. HEENT: Patient denies any visual changes or dizzines. Mild scleral Jaundice. Cardiovascular: Patient denies any palpitations. Respiratory: Refer to HPI. GI: Refer to HPI. Genitourinary: Refer to HPI. Skin: NONE Upper Limbs: NONE. Lower Limbs: NONE. MSK: NONE Objective Objective: Current Medications Sig/Addi Start time Last Medication Dose Route Stop Time Status Admin Folic Acid 1 MG DAILY 04/03 1000 AC PO Influenza Virus 0.5 ML ONCE ONE 04/02 2029 DC 04/02 Vaccine IM 04/02 Morphine Sulfate 0 .STK-MED ONE 04/03 0739 DC .ROUTE Morphine Sulfate 0 .STK-MED ONE 04/03 231 DC .ROUTE Morphine Sulfate 2 MG ONCE ONE 04/03 229 DC 04/03 IV 01/10 0231 0233 Morphine Sulfate 0 .STK-MED ONE 04/02 1805 DC .ROUTE Morphine Sulfate 2 MG Q8P PRN 04/02 1730 AC 04/03 IV 0740 Morphine Sulfate 4 MG ONCE ONE 04/02 1545 DC 04/02 IV 04/02 1546 1810 Ondansetron HCl 0 .STK-MED ONE 04/02 2136 DC .ROUTE Ondansetron HCl 4 MG Q8P PRN 04/02 2030 AC 04/02 IV 2138 Ondansetron HCl 0 .STK-MED ONE 04/02 1215 DC .ROUTE Ondansetron HCl 4 MG ONCE ONE 04/02 1200 DC 04/02 IV 04/02 1201 1219 Sodium Chloride 1,000 ML Q10H 04/02 1615 AC 04/02 IV 1810 Sodium Chloride 1,000 ML BOLUS ONE 04/02 1200 DC 04/02 IV 04/02 1259 1219 Vital Signs Date Time Temp Pulse Resp B/P Pulse O2 O2 Flow FiO2 Ox Delivery Rate 04/03 608 98.0 84 18 141/68 98 Room Air Physical Examination: General: 21 y/o patient with no signs of distress, mild scleral jaundice and LUQ pain that radiates to the back and neck ipsilaterally. HEENT: Mild scleral jaundice on both eyes. Neck: Not assessed Mouth: Not assessed Lungs: Mild crackles at the base of the Lungs. CV: S1, S2 sounds were heard; strong S2 closure; no murmurs were appreicated. GI: Not assessed Genitourinary: Not assessed MSK: Not assessed Upper Extremities: Not assessed Lower Extremities: Not assessed Neurological: Normal Speech. Additional Notes: No pertinent notes for the moment. Results Results: Laboratory Tests 04/03/16 06: Anion Gap 8, Estimated GFR > 60, BUN/Creatinine Ratio 13.8, Iron 39 L, TIBC 223 L, Ferritin Pending, Total Bilirubin 4.8 H, Direct Bilirubin 0.6 H, AST 63 H , ALT 23, Alkaline Phosphatase 41, Total Protein 6.6, Albumin 3.8, Vitamin B12 Pending, Folate Pending, CBC w Diff MAN DIFF ORDERED, RBC 2.29 L, MCV 78.0 L, MCH 27.6, RDW 21.7 H, MPV 9.9, Gran % 47.9, Lymphocytes % 43.7, Monocytes % 7.5 , Eosinophils % 0.2, Basophils % 0.7, Absolute Granulocytes 4.6, Segmented Neutrophils 43, Absolute Lymphocytes 4.2 H, Lymphocytes 50, Monocytes 7, Absolute Monocytes 0.7 H, Absolute Eosinophils 0, Absolute Basophils 0.1, Nucleated RBCs 14 H, Platelet Estimate ADEQUATE, Polychromasia 1+, Poikilocytosis 1+, Anisocytosis 1+, Microcytic Cells 1+, Ovalocytes 1+, PUBS MCHC 35.3, Fld Total RBCs Counted 100 04/02/16 1801: Urine Color YEL, Urine Clarity CLEAR, Urine pH 6.5, Ur Specific Rachel 1.010, Urine Protein TRACE H, Urine Ketones NEG, Urine Nitrite NEG, Urine Bilirubin NEG, Urine Urobilinogen 4.0 H, Ur Leukocyte Esterase NEG, Ur Microscopic SEDIMENT EXAMINED, Urine RBC 1-3, Urine WBC 1-3 H, Urine Hemoglobin SMALL H, Urine Glucose NEG 04/02/16 1051: Haptoglobin Pending 04/02/16 1051: Anion Gap 11, Estimated GFR > 60, BUN/Creatinine Ratio 16.3, Glucose 99, Lactic Acid 1.0, Calcium 8.9, Total Bilirubin 4.6 H, Direct Bilirubin 0.8 H, AST 89 H, ALT 27, Alkaline Phosphatase 41, Total Protein 7.2, Albumin 4.3, Globulin 2.9 , Albumin/Globulin Ratio 1.5, Amylase 65, Lipase 94, CBC w Diff NO MAN DIFF REQ, RBC 2.79 L, MCV 78.4 L, MCH 27.9, RDW 21.7 H, MPV 10.7 H, Gran % 72.4, Lymphocytes % 16.4 L, Monocytes % 10.4 H, Eosinophils % 0.6, Basophils % 0.2, Absolute Granulocytes 5.7, Absolute Lymphocytes 1.3, Absolute Monocytes 0.8 H, Absolute Eosinophils 0, Absolute Basophils 0, PUBS MCHC 35.6, Retic Count 5.49 H Microbiology 04/02 2234 BLOOD: Blood Culture - RECD 04/02 2219 BLOOD: Blood Culture - RECD 04/02 1609 STOOL: Cryptosporidium Antigen - COLB 04/02 161 STOOL: Giardia Antigen (MATTHEW) - COLB 04/02 161 STOOL: Stool Culture - COLB 04/02 1605 STOOL: Clostridium difficile Toxin A & B - COLB Assessment/Plan Assessment: Mr Regalado is a 21 y/o M that came in for multiple episodes of emesis and diarrhea associated with fever, muscle aches, chills and a dry cough. The patient has a history of Hereditary Spherocytosis and currently is presenting with LUQ pain that radiates to the ipsilateral back and neck. The patient has had around 30 bouts of emesis since the symptoms started the past . Physical examination revealed signs of scleral jaundice and splenomegaly. Today the patient mentions that he feels well and has not had any episodes of the described symptom profile. He was consuming his approved diet without any difficulty and had a normal appreance. LUQ pain diminished greatly compared to yesterday on his subjective appreciation. Problem List: 1) Vomiting/Diarrhea 2) Splenomegaly 3) LUQ Pain 4) L-side neck pain 5) Jaundice Plan: - Continue on observation and monitor blood labds. - Start blood transfusion to reestablish hematologic status. - Administer IV fluids to establish proper hemodynamics. - Contact previous healthcare provider to obtain confirmation of HS diagnosis. - Administer Ondansetron to control emesis (8mg IV q8hrs prn). - Start blood transfusion to reestablish hematologic status. - Administer IV fluids to establish proper hemodynamics. - Contact previous healthcare provider to obtain confirmation of HS diagnosis. - Administer Ondansetron to control emesis (8mg IV q8hrs prn).
[2016-04-03 09:54] VITALS: BP 141/79
--- NOTE | 2016-04-03 12:50 | Cons- Hematology ---
General Information and HPI Consulting Request Date of Consult: 04/03/16 Requested By: EBENEZER GONZALEZ,JEROME Reason for Consult: Hereditary spherocytosis Source of Information: patient Exam Limitations: no limitations History of Present Illness: Mr. Regalado is a 21-year-old -Malaysian male with reported history of hereditary spherocytosis who presented to the ED with nausea, vomiting, and diarrhea for the past week. He states he was well until late last week when he noted having nasuea, vomiting, and subsequently diarrhea. He was unable to tolerate anything. Symptoms did improve initially but worsen again the day prior to admission. He has some shortness of breath with exertion. He did noticed some yellowing of his skin. He denies any fever but felt a little cold. He states he has these episodes a few times a year. He does not remember his last transfusion. On presentation to the ED, he was noted to have a hemoglobin of 7.8. He was given IVF and hemoglobin is 6.3 this morning. He did not have any fever or chills. US of his abdomen did demonstrate splenomegaly and likely sludge in the gallbladder. He was transfused with pRBC today. Of note, he states he was diagnosed with hereditary spherocytosis as a child and had previously followed pediatric hematology. He has not followed with them in years. He has had similar symptoms a few times a year. He has not required transfusion for years now per the patient. He is not taking folic acid regularly. He reports previously being told about splenectomy. Allergies/Medications Allergies: Coded Allergies: NO KNOWN ALLERGIES (04/27/13) Home Med List: No Known Home Medications Current Medications: Current Medications Sig/Addi Start time Last Medication Dose Route Stop Time Status Admin Folic Acid 0 .STK-MED ONE 04/03 1015 DC PO Folic Acid 1 MG DAILY 04/03 1000 AC 04/03 PO 1015 Influenza Virus 0.5 ML ONCE ONE 04/02 2030 DC 04/02 Vaccine IM 04/02 Morphine Sulfate 0 .STK-MED ONE 04/03 0739 DC .ROUTE Morphine Sulfate 0 .STK-MED ONE 04/03 0232 DC .ROUTE Morphine Sulfate 2 MG ONCE ONE 04/03 0230 DC 04/03 IV 04/03 0231 0233 Morphine Sulfate 0 .STK-MED ONE 04/02 1805 DC .ROUTE Morphine Sulfate 2 MG Q8P PRN 01/09 1730 AC 04/03 IV 0740 Morphine Sulfate 4 MG ONCE ONE 04/02 1545 DC 04/02 IV 04/02 1546 1810 Ondansetron HCl 0 .STK-MED ONE 04/03 0910 DC .ROUTE Ondansetron HCl 0 .STK-MED ONE 04/02 2136 DC .ROUTE Ondansetron HCl 4 MG Q8P PRN 04/02 2030 AC 04/03 IV 0908 Ondansetron HCl 0 .STK-MED ONE 04/02 1215 DC .ROUTE Ondansetron HCl 4 MG ONCE ONE 04/02 1200 DC 04/02 IV 04/02 1201 1219 Sodium Chloride 1,000 ML Q10H 04/02 1615 AC 04/02 IV 1810 Sodium Chloride 1,000 ML BOLUS ONE 04/02 1200 DC 04/02 IV 04/02 1259 1219 Review of Systems Review of Systems Constitutional: Reports: malaise. Denies: chills, fever. EENTM: Denies: nasal congestion. Cardiovascular: Denies: chest pain. Respiratory: Reports: cough, short of breath. Denies: hemoptysis. GI: Reports: diarrhea, nausea, vomiting. Denies: melena, bloody stool. Genitourinary: Denies: dysuria, hematuria. Musculoskeletal: Reports: muscle pain. Neurological/Psychological: Denies: confusion, headache. Hematologic/Endocrine: Denies: bleeding. Immunologic/Allergic: Denies: splenectomy, lymphadenopathy. All Other Systems: Reviewed and Negative Past History Travel History Traveled to [place] past 21 day No Medical History Blood Transfusion Hx: Yes Neurological: NONE EENT: NONE Cardiovascular: NONE Respiratory: NONE Gastrointestinal: SPHEROCYTOSIS Hepatic: NONE Renal: NONE Musculoskeletal: NONE Psychiatric: NONE Endocrine: NONE Blood Disorders: NONE Cancer(s): NONE FINANCIAL QUANTITATIVE ANALYST/Reproductive: NONE Surgical History Surgical History: non-contributory Psychosocial History Where Do You Live? Home Who Do You Live With? parent, siblings Services at Home: None Primary Language: Belarusian Smoking Status: Current Everyday Smoker (1 pack year smoking history) ETOH Use: occasional use (rum or beer occassionally) Illicit Drug Use: marijuana (daily) Functional Ability ADLs Independent: dressing, eating, toileting, bathing. Ambulation: independent IADLs Independent: shopping, housework, finances, food prep, telephone, transportation , medication admin. Exam & Diagnostic Data Vital Signs and I&O Vital Signs Date Time Temp Pulse Resp B/P Pulse O2 O2 Flow FiO2 Ox Delivery Rate 04/03 1003 98.3 72 18 141/79 100 Room Air 04/03 0957 100 Room Air 04/03 0954 98.3 72 16 141/79 100 Room Air 04/03 0609 98.0 84 18 141/68 98 Room Air 04/02 2243 98.8 76 18 141/73 99 Room Air 04/02 2236 98.8 76 18 141/73 99 Room Air 04/02 1802 98.8 67 18 141/79 99 Room Air 04/02 1418 99.6 64 18 145/71 100 Intake & Output 04/03 1600 04/03 0800 04/03 0000 Intake Total 480 800 Output Total 400 Balance 480 400 Intake, IV 300 Intake, Oral 480 500 Output, Urine 400 Patient 70.307 kg Weight Physical Exam General Appearance: well developed/nourished, no apparent distress, alert, awake , comfortable Head: atraumatic Eyes: Bilateral: PERRL, EOMI, other (sclera icterus). Ears, Nose, Throat: normal pharynx, moist mucus membranes Neck: supple, no adenopathy Respiratory: normal breath sounds, chest non-tender, no respiratory distress, quiet respiration Cardiovascular: regular rate/rhythm Gastrointestinal: normal bowel sounds, soft, non-tender, no organomegaly Extremities: no edema Neurologic/Psych: awake, alert, oriented x 3 Skin: intact, normal color Lymphatic: no adenopathy Last 48 Hours of Lab Results: Laboratory Tests 04/03 04/02 0609 1801 Chemistry Sodium (137 - 145 mmol/L) 138 Potassium (3.5 - 5.1 mmol/L) 3.9 Chloride (98 - 107 mmol/L) 96 L Carbon Dioxide (22 - 30 mmol/L) 34 H Anion Gap (5 - 16) 8 BUN (9 - 20 mg/dL) 11 Creatinine (0.7 - 1.2 mg/dL) 0.8 Estimated GFR (>60 ml/min) > 60 BUN/Creatinine Ratio (7 - 25 %) 13.8 Iron (49 - 181 ug/dL) 39 L TIBC (261 - 462 ug/dL) 223 L Ferritin (17.9 - 464 ng/mL) 2660.0 H Total Bilirubin (0.2 - 1.3 mg/dL) 4.8 H Direct Bilirubin (< 0.4 mg/dL) 0.6 H AST (17 - 59 U/L) 63 H ALT (21 - 72 U/L) 23 Alkaline Phosphatase (< 127 U/L) 41 Total Protein (6.3 - 8.2 g/dL) 6.6 Albumin (3.5 - 5.0 g/dL) 3.8 Vitamin B12 (239 - 931 pg/mL) 350 Folate (2.76 - 20.0 ng/mL) 10.3 Hematology CBC w Diff MAN DIFF ORDERED WBC (4.8 - 10.8 /CUMM) 9.8 RBC (4.70 - 6.10 /CUMM) 2.29 L Hgb (14.0 - 18.0 G/DL) 6.3 *L Hct (42 - 52 %) 17.8 *L MCV (80.0 - 94.0 FL) 78.0 L MCH (27.0 - 31.0 PG) 27.6 RDW (11.5 - 14.5 %) 21.7 H Plt Count (130 - 400 /CUMM) 102 L MPV (7.4 - 10.4 FL) 9.9 Gran % (42.2 - 75.2 %) 47.9 Lymphocytes % (20.5 - 51.1 %) 43.7 Monocytes % (1.7 - 9.3 %) 7.5 Eosinophils % (0 - 5 %) 0.2 Basophils % (0.0 - 2.0 %) 0.7 Absolute Granulocytes (1.4 - 6.5 /CUMM) 4.6 Segmented Neutrophils (42.2 - 75.2 %) 43 Absolute Lymphocytes (1.2 - 3.4 /CUMM) 4.2 H Lymphocytes (20.5 - 51.1 %) 50 Monocytes (1.7 - 9.3 %) 7 Absolute Monocytes (0.10 - 0.60 /CUMM) 0.7 H Absolute Eosinophils (0.0 - 0.7 /CUMM) 0 Absolute Basophils (0.0 - 0.2 /CUMM) 0.1 Nucleated RBCs (0.0 - 0.0 /100WBC) 14 H Platelet Estimate (ADEQUATE) ADEQUATE Polychromasia 1+ Poikilocytosis 1+ Anisocytosis 1+ Microcytic Cells 1+ Ovalocytes 1+ PUBS MCHC (33.0 - 37.0 G/DL) 35.3 Other Body Source Fld Total RBCs Counted (%) 100 Urines Urine Color (YEL,AMB,STR) YEL Urine Clarity (CLEAR) CLEAR Urine pH (5.0 - 8.0) 6.5 Ur Specific [place] (1.001 - 1.035) 1.010 Urine Protein (NEG,<30 MG/DL) TRACE H Urine Ketones (NEG) NEG Urine Nitrite (NEG) NEG Urine Bilirubin (NEG) NEG Urine Urobilinogen (0.1 - 1.0 EU/dl) 4.0 H Ur Leukocyte Esterase (NEG) NEG Ur Microscopic SEDIMENT EXAMINED Urine RBC (0 - 5 /HPF) 1-3 Urine WBC (0 - 2 /HPF) 1-3 H Urine Hemoglobin (NEG) SMALL H Urine Glucose (N MG/DL) NEG 04/02 04/02 1051 1051 Chemistry Sodium (137 - 145 mmol/L) 132 L Potassium (3.5 - 5.1 mmol/L) 3.6 Chloride (98 - 107 mmol/L) 90 L Carbon Dioxide (22 - 30 mmol/L) 32 H Anion Gap (5 - 16) 11 BUN (9 - 20 mg/dL) 13 Creatinine (0.7 - 1.2 mg/dL) 0.8 Estimated GFR (>60 ml/min) > 60 BUN/Creatinine Ratio (7 - 25 %) 16.3 Glucose (65 - 99 mg/dL) 99 Lactic Acid (0.7 - 2.1 mmol/L) 1.0 Calcium (8.4 - 10.2 mg/dL) 8.9 Total Bilirubin (0.2 - 1.3 mg/dL) 4.6 H Direct Bilirubin (< 0.4 mg/dL) 0.8 H AST (17 - 59 U/L) 89 H ALT (21 - 72 U/L) 27 Alkaline Phosphatase (< 127 U/L) 41 Total Protein (6.3 - 8.2 g/dL) 7.2 Albumin (3.5 - 5.0 g/dL) 4.3 Globulin (1.9 - 4.2 gm/dL) 2.9 Albumin/Globulin Ratio (1.1 - 2.2 %) 1.5 Amylase (30 - 110 U/L) 65 Lipase (23 - 300 U/L) 94 Hematology CBC w Diff NO MAN DIFF REQ WBC (4.8 - 10.8 /CUMM) 7.9 RBC (4.70 - 6.10 /CUMM) 2.79 L Hgb (14.0 - 18.0 G/DL) 7.8 L Hct (42 - 52 %) 21.8 L MCV (80.0 - 94.0 FL) 78.4 L MCH (27.0 - 31.0 PG) 27.9 RDW (11.5 - 14.5 %) 21.7 H Plt Count (130 - 400 /CUMM) 113 L MPV (7.4 - 10.4 FL) 10.7 H Gran % (42.2 - 75.2 %) 72.4 Lymphocytes % (20.5 - 51.1 %) 16.4 L Monocytes % (1.7 - 9.3 %) 10.4 H Eosinophils % (0 - 5 %) 0.6 Basophils % (0.0 - 2.0 %) 0.2 Absolute Granulocytes (1.4 - 6.5 /CUMM) 5.7 Absolute Lymphocytes (1.2 - 3.4 /CUMM) 1.3 Absolute Monocytes (0.10 - 0.60 /CUMM) 0.8 H Absolute Eosinophils (0.0 - 0.7 /CUMM) 0 Absolute Basophils (0.0 - 0.2 /CUMM) 0 PUBS MCHC (33.0 - 37.0 G/DL) 35.6 Retic Count (0.5 - 2.0 %) 5.49 H Haptoglobin Pending Imaging/Other Studies: US Abdomen 04/02/2016: Limited assessment of the gallbladder as the patient just ate. There is gallbladder sludge without definite sonographic evidence of acute cholecystitis. Splenomegaly. Assessment/Plan Assessment: Mr. Regalado is a 21-year-old male with history of hereditary spherocytosis who presents with likely gastroenteritis with elevate bilirubin and anemia. His reported history of HS would put him at increased risk of hemolysis in the acute setting especially during infection. Dehydration may also trigger some of these symptoms. His diagnois of HS is not confirmed currently. He should have records from previous provider to ensure the correct diagnosis. His blood work does demonstrate a microcytic anemia with elevated RDW. His MCH is normal. His family history is noted to have sickle cell anemia. I wonder if he has some underlying sickle cell trait with this history. He should be evaluated for hemolysis. LDH and haptoglobin can be followed. Coomb's can be checked. He has elevated bilirubin. His reticulocyte counts are elevated. He should continue on his folate supplementation. Main therapeutic option for patient with HS is splenectomy. Given his multiple symptomatic episodes a year, he will likely need splenectomy. This can be discussed as an outpatient if his current episode does not demonstrate severe hemolytic anemia. Prior to splenectomy (at least 2 weeks prior), he should have vaccination for pneumococcus (PCV13 and PPSV23), meningococcus, H. influenzae, and influenza. Other options would be transfusion with pRBC or iron supplementation with EPO. Recommendations: 1. Obtain previous records for HS diagnosis 2. Evaluate hemolytic anemia: LDH, haptoglobin, Rebecca 3. Consider splenectomy (outpatient at the moment) 4. Vaccination with pneumococcus, meningococcus, H. influenzae, influenza 5. Continue folic acid supplementation Problem List: 1. Hereditary spherocytic hemolytic anemia 2. Acute gastroenteritis Other Findings/Comments: Please call [phone] with any questions or concerns. Consult Acknowledgment - Thank you for your consult request.
[2016-04-03 18:29] LABS: ABSOLUTE BASOPHIL COUNT 0 /CUMM (0.0-0.2); ABSOLUTE EOSINOPHIL COUNT 0 /CUMM (0.0-0.7); BASOPHIL % 0.4 % (0.0-2.0)
[2016-04-03 18:37] LABS: ABSOLUTE GRANULOCYTE CT 5.8 /CUMM (1.4-6.5); ABSOLUTE LYMPH COUNT 2.5 /CUMM (1.2-3.4); ABSOLUTE MONOCYTE COUNT 0.5 /CUMM (0.10-0.60); EOSINOPHIL % 0.3 % (0-5); GRANULOCYTE % 65.2 % (42.2-75.2); MEAN CORPUSCULAR HGB 27.7 PG (27.0-31.0); MEAN CORPUSCULAR HGB CONC 34.4 G/DL (33.0-37.0); MEAN CORPUSCULAR VOLUME 80.3 FL (80.0-94.0); MEAN PLATELET VOLUME 9.8 FL (7.4-10.4); PLATELET COUNT 104 /CUMM (130-400); RBC DISTRIBUTION WIDTH 20.7 % (11.5-14.5)
[2016-04-03 18:40] LABS: HEMATOCRIT 24.3 % (42-52); RED BLOOD CELL CT 3.03 /CUMM (4.70-6.10)
[2016-04-03 19:00] LABS: WHITE BLOOD CELL COUNT 9.2 /CUMM (4.8-10.8)
[2016-04-03 19:01] VITALS: BP 124/63
[2016-04-03 20:16] VITALS: BP 122/72
[2016-04-03 22:31] VITALS: BP 112/64
--- NOTE | 2016-04-04 05:48 | PN- Housestaff ---
YURIY GONZALEZ,LORENZO 04/04/16 0548: Subjective Follow-up For: Acute gastroenteritis, symptomatic hemolytic anemia Complaints: dry cough Subjective: I followed up and examined the patient today. He is resting comfortably on his bed, is not in any acute distress, has occasional dry cough, otherwise does not have any complaints. He tolerated well to liquid diet yesterday, and says he is willing to try regular food today. He received 2 units of RBC yesterday, did not have any reactions, and is less short of breath today. He hasn't had a bowel movement yet. Review of Systems Constitutional: Reports: no symptoms. EENTM: Reports: no symptoms. Cardiovascular: Reports: no symptoms. Respiratory: Reports: no symptoms. Gastrointestinal: Reports: no symptoms. Genitourinary: Reports: no symptoms. Musculoskeletal: Reports: no symptoms. Skin: Reports: jaundice. Neurological/Psychological: Reports: no symptoms. Hematologic/Endocrine: Reports: no symptoms. Objective Last 24 Hrs of Vital Signs/I&O Vital Signs Date Time Temp Pulse Resp B/P Pulse O2 O2 Flow FiO2 Ox Delivery Rate 04/04 0644 98.6 66 20 134/76 96 Room Air 04/04 0642 98.6 66 20 134/76 96 Room Air 04/03 2231 98.8 72 20 112/64 97 Room Air 04/03 2016 98.8 78 20 122/72 98 Room Air 04/03 1901 98.7 69 18 124/63 98 Room Air Room Air 04/03 1533 99.1 86 18 132/72 98 Room Air 04/03 1003 98.3 72 18 141/79 100 Room Air 04/03 0957 100 Room Air 04/03 0954 98.3 72 16 141/79 100 Room Air Intake & Output 04/04 0800 04/04 0000 04/03 1600 Intake Total 1300 1050 1710 Output Total 500 Balance 1300 1050 1210 Intake, Blood 350 Product Intake, IV 800 400 400 Intake, Oral 500 650 960 Output, Urine 500 Physical Exam General Appearance: Alert, Oriented X3, Cooperative, No Acute Distress Other Physical Findings: Physical examnination: General: well nourished patient not in distress Head: Normocephalic, atraumatic Eyes: Pupils normal in size, regular, reacting to light and accommodation, EOM normal, JAUNDICE PRESENT Ears: B/l normal on inspection Nose: Normal on inspection Throat/mouth: Moist mucosa Neck: Supple, full range of motion, no thyromegaly Heart: Regular rate, regular rhythm Lung: Abd: Soft, MILD TENDERNESS OVER LEFT UPPER QUADRANT, SPLEEN TIP ?PALPABLE, LEFT COSTOVERTEBRAL ANGLE TENDERNESS PRESENT, no distention appreciated Back: Normal range of motion Extremities: Normal knee exam bilaterally, [no] pedal edema, Distal neurovascular intact Neurologic: Alert, oriented x3, Cranial exam grossly intact, Speech is clear and coherent Skin: Warm and dry Psychiatric: Calm, cooperative, coherant Current Medications: Current Medications Sig/Addi Start time Last Medication Dose Route Stop Time Status Admin Folic Acid 0 .STK-MED ONE 04/03 1015 DC PO Folic Acid 1 MG DAILY 04/03 1000 AC 04/03 PO 1015 Haemophilus 1 KAM ONCE ONE 04/03 1800 DC Influenzae IM 04/03 1801 Meningococcal 1 KAM ONCE ONE 04/03 1800 DC Polysaccharide Vacc SC 04/03 1801 Morphine Sulfate 0 .STK-MED ONE 04/03 1454 DC .ROUTE Morphine Sulfate 0 .STK-MED ONE 04/03 0739 DC .ROUTE Morphine Sulfate 2 MG Q8P PRN 04/02 1730 AC 04/03 IV 1458 Non-Formulary 0 SEE ADMIN CRITERIA 04/03 1545 CAN Medication ANY Non-Formulary 0 SEE ADMIN CRITERIA 04/03 1530 CAN Medication ANY Non-Formulary 0 SEE ADMIN CRITERIA 04/03 1515 CAN Medication ANY Ondansetron HCl 0 .STK-MED ONE 04/03 0910 DC .ROUTE Ondansetron HCl 4 MG Q8P PRN 04/02 2030 AC 04/03 IV 1950 Pneumococcal 0.5 ML ONCE ONE 04/03 1800 DC Polyvalent Vaccine IM 04/03 1801 Sodium Chloride 1,000 ML Q10H 04/02 1615 AC 04/04 IV 0558 Last 24 Hrs of Lab/Zeus Results Last 24 Hrs of Labs/Mics: Laboratory Tests 04/04/16 0650: Anion Gap 11, Estimated GFR > 60, BUN/Creatinine Ratio 12.5, Total Bilirubin 6.0 H, Direct Bilirubin 1.0 H, AST 48, ALT 32, Alkaline Phosphatase 45, Total Protein 6.4, Albumin 3.5, CBC w Diff MAN DIFF ORDERED, RBC 3.02 L, MCV 80.2, MCH 27.8, RDW 21.8 H, MPV 10.2, Gran % 63.1, Lymphocytes % 26.7, Monocytes % 9.5 H, Eosinophils % 0.4, Basophils % 0.3, Absolute Granulocytes 5.9, Segmented Neutrophils 58, Band Neutrophils 1, Absolute Lymphocytes 2.5, Lymphocytes 34, Monocytes 7, Absolute Monocytes 0.9 H, Absolute Eosinophils 0, Absolute Basophils 0, Nucleated RBCs 12 H, Platelet Estimate VERIFIED BY SMEAR, Poikilocytosis 1+, Anisocytosis 1+, Target Cells RARE, Ovalocytes FEW, PUBS MCHC 34.6 04/03/161809: CBC w Diff MAN DIFF ORDERED, RBC 3.03 L, MCV 80.3, MCH 27.7, RDW 20.7 H, MPV 9.8, Gran % 65.2, Lymphocytes % 27.9, Monocytes % 6.2, Eosinophils % 0.3, Basophils % 0.4, Absolute Granulocytes 5.8, Segmented Neutrophils 51, Absolute Lymphocytes 2.5, Lymphocytes 44, Monocytes 4, Absolute Monocytes 0.5, Absolute Eosinophils 0, Absolute Basophils 0, Metamyelocytes 1, Nucleated RBCs 18 H, Platelet Estimate ADEQUATE, Hypochromic-Microcytic 1+, Marielena Cells 1+, PUBS MCHC 34.4 Assessment/Plan Assessment: 21 yo M with pmh of heriditary spherocytosis came into the emergency department with complaints of sore throat, nausea, vomiting, diarrhea, fever, SOB since evening. Currently, he is being managed general medical floor for the following issues: #Possible acute gastro-enteritis His clinical picture with sudden onset of fever, nausea, vomiting, diarrhea, is suggestive of acute gastroenteritis. He does not have a history of recent travel or sick contacts with similar illnesses. -Continue IV Zofran for nausea -Continue IV fluids to replete the loss, alowly advance diet -Continue Morphine for pain management -Stool test to explore the etiology of gastroenteritis. Patient hasn't had loose stools since he came in here, so sample is still pending for the test. -Blood and urine cultures pending -Patient tolerated liquid diet until this morning, and is requesting for regular food, so advancing his diet to regular. 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 He is currently SOB while going upto the restroom nearby. -Labs point to hemolytic anemia picture. -USG abdomen shows splenomegaly -His all three blood cell lines are decreased with splenomegaly, i.e. hypersplenism -His Hb was 7.8 with hct 21.8 initially at presentation. It later dropped to 6.3 and was transfused two pints of PRBC with consent, and a repeat Hb/hct was 8.4/ 24.3. -Hematology consultation appreciated. Patient talked about need of splenectomy in future as an outpatient yesterday and today as well. He was given information about it. Optimization Engineer suggested vaccinations (pneumococcal, meningococcal, and Hib) before splenectomy. CDC recommendations and Uptodate checked. It has to be given >=14 days before splenectomy. -Vaccines have been ordered accordingly. Patient explained about the vaccination and agrees to the plan. Of note: Schedule of vaccination is as follows: -Only one dose of 0.5ml of IM Hib vaccine NOW. (Total one shot only) -Fisrt dose of 0.5ml of IM Menincococcal conjugate vaccine (Menveo, or Menactra per CDC recommendation) NOW and SECOND DOSE TWO MONTHS APART. (Total two shots) -First dose of PCV13 NOW, followed in 8 weeks by PPSV23 first dose. Then, second dose of PPSV23 at least five years after the first dose of PPSV23. (Total three shots) #Dry Cough: Started Robitussin DM from today. #Diet: Advancing diet to regular today. Overnight team had advanced it to full liquid diet per patient's request. #DVT ppx: Alps #Code status: Full code Problem List: 1. Acute gastroenteritis 2. Hemolytic anemia 3. Hereditary spherocytic hemolytic anemia Pain Ratin Pain Location: LUQ and left flank, left shoulder Pain Goal: Pain 4 or less Pain Plan: morphine prn Tomorrow's Labs & Rationales: CBC, LFT, to follow up on anemia and hemolytic status. He was arguably hemolysing the new blood. CHRISTINE ZAYAS MD 04/04/16 1540: Attending MD Review Statement Attending Statement Attending MD Statement: examined this patient, discuss w/resident/PA/GAS REVERSER, agreed w/resident/PA/GAS REVERSER, reviewed EMR data (avail) Attending Assessment/Plan: 21M PMH hereditary spherocytosis and ?sickle cell presenting with 4 days of intractable nausea, vomiting and diarrhea in the setting of viral gastroenteritis with dehydration, generalized weakness, and malaise. Hgb dropped to 6.3 on day 2 of admission, transfused 2 units pRBC, now stable. Today patient feels well. Diarrhea and vomiting have resolved, and he is eating again. Hgb stable but bilirubin and LDH still elevated, indicating continued hemolysis. Afebrile, vitals stable, exam benign. 1. Acute viral gastroenteritis 2. Hemolytic anemia 3. Symptomatic anemia 4. Hereditary spherocytosis Plan - Continue IV hydration - Follow up repeat hemolysis labs, check CBC and LFTs tomorrow - Records obtained from [facility] confirm hereditary spherocytosis and sickle cell trait - Follow hematology recommendations - Follow cultures - Monitor Hgb - No antibiotics - DVT PPx - Anticipated discharge tomorrow
[2016-04-04 06:42] VITALS: BP 134/76
[2016-04-04 06:44] VITALS: BP 134/76
[2016-04-04 08:02] LABS: ABSOLUTE BASOPHIL COUNT 0 /CUMM (0.0-0.2); ABSOLUTE EOSINOPHIL COUNT 0 /CUMM (0.0-0.7); ABSOLUTE GRANULOCYTE CT 5.9 /CUMM (1.4-6.5); ABSOLUTE LYMPH COUNT 2.5 /CUMM (1.2-3.4); ABSOLUTE MONOCYTE COUNT 0.9 /CUMM (0.10-0.60); BASOPHIL % 0.3 % (0.0-2.0); EOSINOPHIL % 0.4 % (0-5); GRANULOCYTE % 63.1 % (42.2-75.2); HEMATOCRIT 24.3 % (42-52); MEAN CORPUSCULAR HGB 27.8 PG (27.0-31.0); MEAN CORPUSCULAR HGB CONC 34.6 G/DL (33.0-37.0); MEAN CORPUSCULAR VOLUME 80.2 FL (80.0-94.0); MEAN PLATELET VOLUME 10.2 FL (7.4-10.4); PLATELET COUNT 108 /CUMM (130-400); RBC DISTRIBUTION WIDTH 21.8 % (11.5-14.5); RED BLOOD CELL CT 3.02 /CUMM (4.70-6.10)
--- NOTE | 2016-04-04 08:59 | PN- Hematology ---
Subjective Subjective: He reports feeling a little better. Pain on the left side has improved. He has no fever or chills. He continues to have a cough. He denies any new chest pain. Review of Systems Constitutional: Denies: chills, fever. Cardiovascular: Denies: chest pain. Respiratory: Reports: cough. Denies: short of breath. Gastrointestinal: Reports: abdominal pain. All Other Systems: Reviewed and Negative Objective Vital Signs and I&Os Vital Signs Date Time Temp Pulse Resp B/P Pulse O2 O2 Flow FiO2 Ox Delivery Rate 04/04 0644 98.6 66 20 134/76 96 Room Air 04/04 0642 98.6 66 20 134/76 96 Room Air 04/03 2231 98.8 72 20 112/64 97 Room Air 04/03 2016 98.8 78 20 122/72 98 Room Air 04/03 1901 98.7 69 18 124/63 98 Room Air Room Air 04/03 1533 99.1 86 18 132/72 98 Room Air 04/03 1003 98.3 72 18 141/79 100 Room Air 04/03 0957 100 Room Air 04/03 0954 98.3 72 16 141/79 100 Room Air Intake & Output 04/04 1600 04/04 0800 04/04 0000 04/03 1600 04/03 0800 04/03 0000 Intake Total 1300 1050 1710 800 Output Total 500 400 Balance 1300 1050 1210 400 Intake, Blood 350 Product Intake, IV 800 400 400 300 Intake, Oral 500 650 960 500 Output, Urine 500 400 Patient 70.307 kg Weight Physical Exam: General Appearance: well developed/nourished, no apparent distress, alert, awake , comfortable Head: atraumatic Eyes: Bilateral: PERRL, EOMI, other (sclera icterus). Ears, Nose, Throat: normal pharynx, moist mucus membranes Neck: supple, no adenopathy Respiratory: normal breath sounds, chest non-tender, no respiratory distress, quiet respiration Cardiovascular: regular rate/rhythm Gastrointestinal: normal bowel sounds, soft, non-tender, spleen 2 fingerbreadths below ribs. Extremities: no edema Neurologic/Psych: awake, alert, oriented x 3 Skin: intact, normal color Lymphatic: no adenopathy Current Medications: Current Medications Sig/Addi Start time Last Medication Dose Route Stop Time Status Admin Folic Acid 0 .STK-MED ONE 04/03 1015 DC PO Folic Acid 1 MG DAILY 04/03 1000 AC 04/03 PO 1015 Guaifenesin/Codeine 10 ML Q6P PRN 04/04 0830 CAN Phosphate PO Guaifenesin/ 10 ML Q4P PRN 04/04 0830 AC Dextromethorphan PO Haemophilus 1 KAM ONCE ONE 04/03 1800 DC Influenzae IM 04/03 1801 Meningococcal 1 KAM ONCE ONE 04/03 1800 DC Polysaccharide Vacc SC 04/03 1801 Morphine Sulfate 0 .STK-MED ONE 04/03 1454 DC .ROUTE Morphine Sulfate 2 MG Q8P PRN 04/02 1730 AC 04/03 IV 1458 Non-Formulary 0 SEE ADMIN CRITERIA 04/03 1545 CAN Medication ANY Non-Formulary 0 SEE ADMIN CRITERIA 04/03 1530 CAN Medication ANY Non-Formulary 0 SEE ADMIN CRITERIA 04/03 1515 CAN Medication ANY Ondansetron HCl 0 .STK-MED ONE 04/03 0910 DC .ROUTE Ondansetron HCl 4 MG Q8P PRN 04/02 2030 AC 04/03 IV 1950 Pneumococcal 0.5 ML ONCE ONE 04/03 1800 DC Polyvalent Vaccine IM 04/03 1801 Sodium Chloride 1,000 ML Q10H 04/02 1615 AC 04/04 IV 0558 Results Last 24 Hours of Lab Results: Laboratory Tests 04/04 04/03 0650 1810 Chemistry Sodium (137 - 145 mmol/L) 139 Potassium (3.5 - 5.1 mmol/L) 4.1 Chloride (98 - 107 mmol/L) 97 L Carbon Dioxide (22 - 30 mmol/L) 31 H Anion Gap (5 - 16) 11 BUN (9 - 20 mg/dL) 10 Creatinine (0.7 - 1.2 mg/dL) 0.8 Estimated GFR (>60 ml/min) > 60 BUN/Creatinine Ratio (7 - 25 %) 12.5 Total Bilirubin (0.2 - 1.3 mg/dL) 6.0 H Direct Bilirubin (< 0.4 mg/dL) 1.0 H AST (17 - 59 U/L) 48 ALT (21 - 72 U/L) 32 Alkaline Phosphatase (< 127 U/L) 45 Total Protein (6.3 - 8.2 g/dL) 6.4 Albumin (3.5 - 5.0 g/dL) 3.5 Hematology CBC w Diff MAN DIFF ORDERED MAN DIFF ORDERED WBC (4.8 - 10.8 /CUMM) Pending 9.2 RBC (4.70 - 6.10 /CUMM) Pending 3.03 L Hgb (14.0 - 18.0 G/DL) Pending 8.4 L Hct (42 - 52 %) Pending 24.3 L MCV (80.0 - 94.0 FL) Pending 80.3 MCH (27.0 - 31.0 PG) Pending 27.7 RDW (11.5 - 14.5 %) Pending 20.7 H Plt Count (130 - 400 /CUMM) Pending 104 L MPV (7.4 - 10.4 FL) Pending 9.8 Gran % (42.2 - 75.2 %) Pending 65.2 Lymphocytes % (20.5 - 51.1 %) Pending 27.9 Monocytes % (1.7 - 9.3 %) Pending 6.2 Eosinophils % (0 - 5 %) Pending 0.3 Basophils % (0.0 - 2.0 %) Pending 0.4 Absolute Granulocytes (1.4 - 6.5 /CUMM) Pending 5.8 Segmented Neutrophils (42.2 - 75.2 %) Pending 51 Absolute Lymphocytes (1.2 - 3.4 /CUMM) Pending 2.5 Lymphocytes (20.5 - 51.1 %) 44 Monocytes (1.7 - 9.3 %) 4 Absolute Monocytes (0.10 - 0.60 /CUMM) Pending 0.5 Absolute Eosinophils (0.0 - 0.7 /CUMM) Pending 0 Absolute Basophils (0.0 - 0.2 /CUMM) Pending 0 Metamyelocytes (0.0 - 1.0 %) 1 Nucleated RBCs (0.0 - 0.0 /100WBC) 18 H Platelet Estimate (ADEQUATE) ADEQUATE Hypochromic-Microcytic 1+ Marielena Cells 1+ PUBS MCHC (33.0 - 37.0 G/DL) Pending 34.4 Assessment/Plan Assessment/Recommendations: Mr. Regalado is a 21-year-old male with history of hereditary spherocytosis who presents with likely gastroenteritis with elevate bilirubin and anemia. His reported history of HS would put him at increased risk of hemolysis in the acute setting especially during infection. Dehydration may also trigger some of these symptoms. His diagnois of HS is not confirmed currently. He should have records from previous provider to ensure the correct diagnosis. His blood work does demonstrate a microcytic anemia with elevated RDW. His MCH is normal. His family history is noted to have sickle cell anemia. I wonder if he has some underlying sickle cell trait with this history. His smear was reviewed yesterday and noted few large sized platelets. He has spherocytes with some target cells. He has increased nucleated RBC and reticulocytes. No sickle cells noted. Blood work demonstrated increased LDH and bilirubin which is consistent with hemolysis. Increase nucleated RBC and reticulocytes are suggestive of increased marrow production and peripheral destruction. He has splenomegaly. Thrombocytopenia is likely from splenomegaly with peripheral sequestration. We don't have previous values. Coomb's can be checked. He should continue on his folate supplementation. Main therapeutic option for patient with HS is splenectomy. Given his multiple symptomatic episodes a year, he will likely need splenectomy in the near future. This can be discussed as an outpatient if his current episode does not demonstrate severe hemolytic anemia. Prior to splenectomy (at least 2 weeks prior), he should have vaccination for pneumococcus (PCV13 and PPSV23), meningococcus, H. influenzae, and influenza. He has started this yesterday. Other options would be transfusion with pRBC or iron supplementation with EPO. His previous records should be obtained to ensure a diagnosis of spherocytosis. His peripheral smear does suggest this diagnosis. His presentation is likely from acute infection triggering hemolysis and exacerbation of his HS. Recommendations: 1. Obtain previous records for HS diagnosis 2. Continue to monitor hemolytic parameters: LDH, bilirubin, CBC 3. Consider splenectomy as an outpatient 4. Continue with vaccination with pneumococcus, meningococcus, H. influenzae, influenza 5. Continue folic acid supplementation 6. Follow up as an outpatient, in my office or if patient prefer with group in [place] if closer to where he lives for compliance Problem List: 1. Hereditary spherocytic hemolytic anemia 2. Thrombocytopenia 3. Acute gastroenteritis
[2016-04-04 09:06] LABS: WHITE BLOOD CELL COUNT 10.2 /CUMM (4.8-10.8)
--- NOTE | 2016-04-04 09:24 | PN- Student ---
Subjective Subjective: History of Present Illness: Follow up visit for: Acute Gastroenteritis & Anemia. I followed up the patient today and he didn't he was laying down on his bed and appeared comfortable and without any type of distress. The patient complained of having a dry cough since yesterday and also mentioned that the neck pain is still present. He also resported that he vomited this morning, but he didn't had any nausea and he associates the event with the amount of liquids that he has been receiving due to his liquid diet. He was changed to a regular diet this morning. The patient denies any nause, diarrhea, abdominal cramps and constipation. Allergies/Medications: Allergies -No known allergies. Current Medications -No home medications Past Medical Hx: Travel History Patient denies any trips outside of the [facility]. Medical History Neurological- NONE Cardiovascular- NONE Hematology/Oncology- Hx of Hereditary Spherocytosis Respiratory- NONE Gastrointestinal- NONE Hepatic- NONE Renal- NONE Psychiatric- NONE Endocrine- NONE Surgical History No surgeries Review of Systems: General: Patient is in proper attire, alert and without any signs of distress. The patient denies any chills, fever, weight loss and night sweats HEENT: Mild scleral Jaundice. Cardiovascular: Patient denies any palpitations. Respiratory: Refer to HPI. GI: Refer to HPI. Genitourinary: NONE Skin: NONE Upper Limbs: NONE. Lower Limbs: NONE. MSK: NONE Objective Objective: Current Medications Sig/Addi Start time Last Medication Dose Route Stop Time Status Admin Folic Acid 0 .STK-MED ONE 04/03 1015 DC PO Folic Acid 1 MG DAILY 04/03 1000 AC 04/04 PO 0902 Guaifenesin/Codeine 10 ML Q6P PRN 04/04 0830 CAN Phosphate PO Guaifenesin/ 10 ML Q4P PRN 04/04 0830 AC Dextromethorphan PO Haemophilus 1 KAM ONCE ONE 04/03 1800 DC Influenzae IM 04/03 1801 Meningococcal 1 KAM ONCE ONE 04/03 1800 DC Polysaccharide Vacc SC 04/03 1801 Morphine Sulfate 0 .STK-MED ONE 04/03 1454 DC .ROUTE Morphine Sulfate 2 MG Q8P PRN 04/02 1730 AC 04/03 IV 1458 Non-Formulary 0 SEE ADMIN CRITERIA 04/03 1545 CAN Medication ANY Non-Formulary 0 SEE ADMIN CRITERIA 04/03 1530 CAN Medication ANY Non-Formulary 0 SEE ADMIN CRITERIA 04/03 1515 CAN Medication ANY Ondansetron HCl 4 MG Q8P PRN 04/02 2030 AC 04/03 IV 1950 Pneumococcal 0.5 ML ONCE ONE 04/03 1800 DC Polyvalent Vaccine IM 04/03 1801 Sodium Chloride 1,000 ML Q10H 04/02 1615 AC 04/04 IV 0558 Vital Signs Date Time Temp Pulse Resp B/P Pulse O2 O2 Flow FiO2 Ox Delivery Rate 04/04 0644 98.6 66 20 134/76 96 Room Air 04/04 0642 98.6 66 20 134/76 96 Room Air 04/03 2231 98.8 72 20 112/64 97 Room Air 04/03 2016 98.8 78 20 122/72 98 Room Air 04/03 1901 98.7 69 18 124/63 98 Room Air Room Air 04/03 1533 99.1 86 18 132/72 98 Room Air 04/03 1003 98.3 72 18 141/79 100 Room Air 04/03 0957 100 Room Air 04/03 0954 98.3 72 16 141/79 100 Room Air Intake & Output 04/04 1600 04/04 0800 04/04 0000 Intake Total 1300 1050 Output Total Balance 1300 1050 Intake, IV 800 400 Intake, Oral 500 650 Physical Examination: General: 21 y/o patient with no signs of distress, mild scleral jaundice and LUQ pain that radiates to the back and neck ipsilaterally and has a dry cough. HEENT: Mild scleral jaundice on both eyes. Neck: Not assessed Mouth: Not assessed Lungs: Mild crackles at the base of the Lungs. CV: S1, S2 sounds were heard; strong S2 closure; no murmurs were appreicated. GI: Not assessed Genitourinary: Not assessed MSK: Not assessed Upper Extremities: Not assessed Lower Extremities: Not assessed Neurological: Normal Speech. Additional Notes: The degree of SOB on exertion has decreased compared to when he was admitted. The Peripheral blood smear was assessed and there were spherocytes visible. Results Results: Laboratory Tests 04/04/16 0650: Anion Gap 11, Estimated GFR > 60, BUN/Creatinine Ratio 12.5, Total Bilirubin 6.0 H, Direct Bilirubin 1.0 H, AST 48, ALT 32, Alkaline Phosphatase 45, Total Protein 6.4, Albumin 3.5, CBC w Diff MAN DIFF ORDERED, RBC 3.02 L, MCV 80.2, MCH 27.8, RDW 21.8 H, MPV 10.2, Gran % 63.1, Lymphocytes % 26.7, Monocytes % 9.5 H, Eosinophils % 0.4, Basophils % 0.3, Absolute Granulocytes 5.9, Segmented Neutrophils 58, Band Neutrophils 1, Absolute Lymphocytes 2.5, Lymphocytes 34, Monocytes 7, Absolute Monocytes 0.9 H, Absolute Eosinophils 0, Absolute Basophils 0, Nucleated RBCs 12 H, Platelet Estimate VERIFIED BY SMEAR, Poikilocytosis 1+, Anisocytosis 1+, Target Cells RARE, Ovalocytes FEW, [facility] MCHC 34.6 04/03/16 1810: CBC w Diff MAN DIFF ORDERED, RBC 3.03 L, MCV 80.3, MCH 27.7, RDW 20.7 H, MPV 9.8, Gran % 65.2, Lymphocytes % 27.9, Monocytes % 6.2, Eosinophils % 0.3, Basophils % 0.4, Absolute Granulocytes 5.8, Segmented Neutrophils 51, Absolute Lymphocytes 2.5, Lymphocytes 44, Monocytes 4, Absolute Monocytes 0.5, Absolute Eosinophils 0, Absolute Basophils 0, Metamyelocytes 1, Nucleated RBCs 18 H, Platelet Estimate ADEQUATE, Hypochromic-Microcytic 1+, Marielena Cells 1+, [facility] 04/03/16 0609: Anion Gap 8, Estimated GFR > 60, BUN/Creatinine Ratio 13.8, Iron 39 L, TIBC 223 L, Ferritin 2660.0 H, Total Bilirubin 4.8 H, Direct Bilirubin 0.6 H, AST 63 H, ALT 23, Alkaline Phosphatase 41, Lactate Dehydrogenase 2215 H, Total Protein 6.6, Albumin 3.8, Vitamin B12 350, Folate 10.3, CBC w Diff MAN DIFF ORDERED, RBC 2.29 L, MCV 78.0 L, MCH 27.6, RDW 21.7 H, MPV 9.9, Gran % 47.9, Lymphocytes % 43.7, Monocytes % 7.5, Eosinophils % 0.2, Basophils % 0.7, Absolute Granulocytes 4.6, Segmented Neutrophils 43, Absolute Lymphocytes 4.2 H, Lymphocytes 50, Monocytes 7, Absolute Monocytes 0.7 H, Absolute Eosinophils 0, Absolute Basophils 0.1, Nucleated RBCs 14 H, Platelet Estimate ADEQUATE, Polychromasia 1 +, Poikilocytosis 1+, Anisocytosis 1+, Microcytic Cells 1+, Ovalocytes 1+, PUBS MCHC 35.3, Fld Total RBCs Counted 100 04/02/16 1801: Urine Color YEL, Urine Clarity CLEAR, Urine pH 6.5, Ur Specific [place] 1.010, Urine Protein TRACE H, Urine Ketones NEG, Urine Nitrite NEG, Urine Bilirubin NEG, Urine Urobilinogen 4.0 H, Ur Leukocyte Esterase NEG, Ur Microscopic SEDIMENT EXAMINED, Urine RBC 1-3, Urine WBC 1-3 H, Urine Hemoglobin SMALL H, Urine Glucose NEG 04/02/16 1051: Haptoglobin Pending 04/02/16 1051: Anion Gap 11, Estimated GFR > 60, BUN/Creatinine Ratio 16.3, Glucose 99, Lactic Acid 1.0, Calcium 8.9, Total Bilirubin 4.6 H, Direct Bilirubin 0.8 H, AST 89 H, ALT 27, Alkaline Phosphatase 41, Lactate Dehydrogenase 2209 H, Total Protein 7.2, Albumin 4.3, Globulin 2.9, Albumin/Globulin Ratio 1.5, Amylase 65, Lipase 94, CBC w Diff NO MAN DIFF REQ, RBC 2.79 L, MCV 78.4 L, MCH 27.9, RDW 21.7 H, MPV 10.7 H, Gran % 72.4, Lymphocytes % 16.4 L, Monocytes % 10.4 H, Eosinophils % 0.6, Basophils % 0.2, Absolute Granulocytes 5.7, Absolute Lymphocytes 1.3, Absolute Monocytes 0.8 H, Absolute Eosinophils 0, Absolute Basophils 0, PUBS MCHC 35.6, Retic Count 5.49 H Microbiology 04/02 2235 BLOOD: Blood Culture - RES 04/02 222 BLOOD: Blood Culture - RES 04/02 161 STOOL: Cryptosporidium Antigen - CAN Cancelled: SPECIMEN NOT RECEIVED IN LABORATORY 04/02 161 STOOL: Giardia Antigen (MATTHEW) - CAN Cancelled: SPECIMEN NOT RECEIVED IN LABORATORY 04/02 161 STOOL: Stool Culture - CAN Cancelled: SPECIMEN NOT RECEIVED IN LABORATORY 04/02 1605 STOOL: Clostridium difficile Toxin A & B - CAN Cancelled: SPECIMEN NOT RECEIVED IN LABORATORY Assessment/Plan Assessment: Mr Regalado is a 21 y/o M that came in for multiple episodes of emesis and diarrhea associated with fever, muscle aches, chills and a dry cough. The patient has a history of Hereditary Spherocytosis and currently is presenting with LUQ pain that radiates to the ipsilateral back and neck. The patient denies any nause, diarrhea or constipation. He vomited this morning but he associated the emesis to liquid overload and the appareance of this vomitus was the same as the liquid he was consuming. The patient has developed a dry cough since yesterday. LUQ pain has diminished but the neck pain still present. HgB levels started to rise since yesterday transfussions and the patient stated that he has had less SOB and dizziness since yesterday while walking to the bathroom; hence, there is hematologic improvement. Additional Notes: The patient's files from the previous provider were received. 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 Problem List: 1) Dry cough 2) SOB 3) Jaundice 4) L-side neck pain Plan: - Start the patient on Dextromethorphan for the dry cough (20mg PO q4hrs). - Follow up on records from previous provider regarding Hereditary Spherocytosis Diagnosis. - Administer vaccines for future possible Splenectomy (Pneumococcal, Meningococcal, HiB). - Monitor regular diet response. - Monitor hematological laboratory findings.
[2016-04-04 15:15] VITALS: BP 132/70
--- NOTE | 2016-04-04 16:46 | Patient Discharge Instructions ---
Discharge Instructions General Discharge Information You were seen/treated for: Acute gastroenteritis Acute hemolytic anemia with Hereditary Spherocytosis Special Instructions: Please visit a primary care physician (PCP) within 7 days of discharge. Please follow-up with sanding machine tender (blood doctor) after you get discharged. Please follow-up with surgery Dr. Arteaga, after you get discharged. The follow-up contacts have been provided below. Please return to emergency if symptoms worsen, including but not limited to, chest pain, shortness of breath, palpitation, dizziness, passing out, worsening jaundice (yellowish discoloration of high/skin), pain abdomen, persistent nausea , vomiting. Of note: Schedule of vaccination is as follows: -Only one dose of 0.5ml of IM Hib vaccine NOW. (Total one shot only) -Fisrt dose of 0.5ml of IM Menincococcal conjugate vaccine (Menveo, or Menactra per CDC recommendation) NOW and SECOND DOSE TWO MONTHS APART. (Total two shots) -First dose of PCV13 NOW, followed in 8 weeks by PPSV23 first dose. Then, second dose of PPSV23 at least five years after the first dose of PPSV23. (Total three shots) The first of all three shots were given on 04/04/16 at [facility]. Diet Continue normal diet: Yes Recommended Diet: Heart Healthy Activity Full Activity/No Limits: No Activity Self Limited: Yes (Avoid contact sports) Acute Coronary Syndrome Inclusion Criteria At DC or during hospital stay patient has or had the following: ACS DIAGNOSIS No Discharge Core Measures Meds if any: Prescribed or Continued at Discharge Meds if any: NOT Prescribed or Continued at Discharge Congestive Heart Failure Inclusion Criteria At DC or during hospital stay patient has or had the following: CHF DIAGNOSIS No Discharge Core Measures Meds if any: Prescribed or Continued at Discharge Meds if any: NOT Prescribed or Continued at Discharge Cerebrovascular accident Inclusion Criteria At DC or during hospital stay patient has or had the following: CVA/TIA Diagnosis No Discharge Core Measures Meds if any: Prescribed or Continued at Discharge Meds if any: NOT Prescribed or Continued at Discharge Venous thromboembolism Inclusion Criteria VTE Diagnosis No VTE Type NONE VTE Confirmed by (Test) NONE Discharge Core Measures - Per Current guidelines, there needs to be overlap - treatment for the first 5 days of Warfarin therapy. - If discharged on Warfarin prior to 5 days of - overlap therapy, the patient will need to be - assessed for post discharge needs including - *Post discharge parental anticoagulation - *Warfarin and/or parental anticoagulation education - *Follow up date to check INR post discharge At least 5 days overlap therapy as Inpatient No Meds if any: Prescribed or Continued at Discharge Note: Overlap Therapy is Warfarin and Anticoagulant Meds if any: NOT Prescribed or Continued at Discharge
[2016-04-04 22:08] VITALS: BP 124/82
[2016-04-05 06:14] VITALS: BP 108/60
--- NOTE | 2016-04-05 07:34 | PN- Housestaff ---
YURIY GONZALEZ,LORENZO 04/05/16 0733: Subjective Follow-up For: Acute gastroenteritis, symptomatic hemolytic anemia Complaints: no complaints Subjective: I followed up and examined the patient today. He is resting comfortably on his bed, is not in any acute distress, has occasional dry cough, otherwise does not have any complaints. He is tolerating regular food. He had a bowel movement and guaiac test was negative yesterday. Vitals have been stable, no issues overnight. Review of Systems Constitutional: Reports: no symptoms. EENTM: Reports: no symptoms. Cardiovascular: Reports: no symptoms. Respiratory: Reports: no symptoms. Gastrointestinal: Reports: no symptoms. Genitourinary: Reports: no symptoms. Musculoskeletal: Reports: no symptoms. Skin: Reports: no symptoms. Neurological/Psychological: Reports: no symptoms. Hematologic/Endocrine: Reports: no symptoms. Objective Last 24 Hrs of Vital Signs/I&O Vital Signs Date Time Temp Pulse Resp B/P Pulse O2 O2 Flow FiO2 Ox Delivery Rate 04/05 0614 98.0 72 20 108/60 99 Room Air 04/04 2217 98.4 04/04 2208 98.4 67 20 124/82 99 Room Air 04/04 1515 98.3 64 20 132/70 96 Intake & Output 04/05 1600 04/05 0800 04/05 0000 Intake Total 1250 1180 Output Total Balance 1250 1180 Intake, IV 800 700 Intake, Oral 450 480 Number 1 Bowel Movements Physical Exam General Appearance: Alert, Oriented X3, Cooperative, No Acute Distress Other Physical Findings: Physical examnination: General: well nourished patient not in distress Head: Normocephalic, atraumatic Eyes: Pupils normal in size, regular, reacting to light and accommodation, EOM normal, JAUNDICE PRESENT Ears: B/l normal on inspection Nose: Normal on inspection Throat/mouth: Moist mucosa Neck: Supple, full range of motion, no thyromegaly Heart: Regular rate, regular rhythm Lung: B/l clear Abd: Soft, MILD TENDERNESS OVER LEFT UPPER QUADRANT, SPLEEN TIP ?PALPABLE, LEFT COSTOVERTEBRAL ANGLE TENDERNESS PRESENT, no distention appreciated Back: Normal range of motion Extremities: Normal knee exam bilaterally, [no] pedal edema, Distal neurovascular intact Neurologic: Alert, oriented x3, Cranial exam grossly intact, Speech is clear and coherent Skin: Warm and dry Psychiatric: Calm, cooperative, coherant Current Medications: Current Medications Sig/Addi Start time Last Medication Dose Route Stop Time Status Admin Folic Acid 1 MG DAILY 04/03 1000 AC 04/05 PO 09 Guaifenesin/ 10 ML Q4P PRN 04/04 0830 AC 04/04 Dextromethorphan PO 09 Ibuprofen 600 MG ONCE ONE 04/05 0245 DC 04/05 PO 04/05 0246 0303 Morphine Sulfate 2 MG Q8P PRN 04/02 1730 AC 04/04 IV 2155 Ondansetron HCl 4 MG Q8P PRN 04/02 2030 AC 04/05 IV 0151 Sodium Chloride 1,000 ML Q10H 04/02 1615 AC 04/05 IV 0420 Last 24 Hrs of Lab/[facility]us Results Last 24 Hrs of Labs/Mics: Laboratory Tests 04/05/16 0705: Total Bilirubin 3.3 H, Direct Bilirubin 0.6 H, AST 33, ALT 24, Alkaline Phosphatase 51, Total Protein 6.2 L, Albumin 3.4 L Assessment/Plan Assessment: 21 yo M with pmh of heriditary spherocytosis came into the emergency department with complaints of sore throat, nausea, vomiting, diarrhea, fever, SOB since evening. Currently, he is being managed general medical floor for the following issues: The patient is doing better, in terms of overall health and seems to be stable enough to send home today. He has been extensively educated about his condition and the need to follow up, including understanding his symptoms. #Acute gastro-enteritis, improving His clinical picture with sudden onset of fever, nausea, vomiting, diarrhea, is suggestive of acute gastroenteritis. He does not have a history of recent travel or sick contacts with similar illnesses. -Continue IV Zofran for nausea when necessary -Since the diet has already been advanced and he is tolerating a regular diet, IV fluid has been stopped as of now. -Continue Morphine for pain management when necessary -Blood and urine cultures pending. Not expecting anything drastic as the patient is already improving with current medication. 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 He is currently SOB while going upto the restroom nearby. -Labs point to hemolytic anemia picture. -USG abdomen shows splenomegaly -His all three blood cell lines are decreased with splenomegaly, i.e. hypersplenism -His Hb was 7.8 with hct 21.8 initially at presentation. It later dropped to 6.3 and was transfused two pints of PRBC with consent, and a repeat Hb/hct was 8.4/ 24.3. -Hematology consultation appreciated. Patient talked about need of splenectomy in future as an outpatient yesterday and today as well. He was given information about it. Synoptic Meteorologist suggested vaccinations (pneumococcal, meningococcal, and Hib) before splenectomy. CDC recommendations and Uptodate checked. It has to be given >=14 days before splenectomy. -Vaccines have been ordered accordingly. Patient explained about the vaccination and agrees to the plan. Of note: Schedule of vaccination is as follows: -Only one dose of 0.5ml of IM Hib vaccine NOW. (Total one shot only) -Fisrt dose of 0.5ml of IM Menincococcal conjugate vaccine (Menveo, or Menactra per CDC recommendation) NOW and SECOND DOSE TWO MONTHS APART. (Total two shots) -First dose of PCV13 NOW, followed in 8 weeks by PPSV23 first dose. Then, second dose of PPSV23 at least five years after the first dose of PPSV23. (Total three shots) Patient received pneumococcal vaccine, meningococcal vaccination, hemophilus influenzae type b vaccine yesterday. ALL FIRST DOSE. He had already received flu vaccine on admission. #Dry Cough: Started Robitussin DM yesterday, cough already under control. Continue it for now. #Diet: Advancing diet to regular today. Overnight team had advanced it to full liquid diet per patient's request. #DVT ppx: Alps #Code status: Full code Problem List: 1. Acute gastroenteritis 2. Hemolytic anemia 3. Hereditary spherocytic hemolytic anemia 4. Hypersplenism Pain Ratin Pain Location: - Pain Goal: Remain pain free Pain Plan: prn Tomorrow's Labs & Rationales: - , going home today CHRISTINE ZAYAS MD 04/05/16 1445: Attending MD Review Statement Attending Statement Attending Statement: examined this patient, discuss w/resident/PA/GRAPHIC ART DESIGNER, agreed w/resident/PA/GRAPHIC ART DESIGNER, reviewed EMR data (avail) Attending Assessment/Plan: 21M PMH hereditary spherocytosis and ?sickle cell presenting with 4 days of intractable nausea, vomiting and diarrhea in the setting of viral gastroenteritis with dehydration, generalized weakness, and malaise. Hgb dropped to 6.3 on day 2 of admission, transfused 2 units pRBC, now stable. Today patient feels well. Diarrhea and vomiting have resolved, and he is eating again. Hgb stable but bilirubin and LDH still elevated, indicating continued hemolysis. Afebrile, vitals stable, exam benign. 1. Acute viral gastroenteritis 2. Hemolytic anemia 3. Symptomatic anemia 4. Hereditary spherocytosis Plan - Stable for discharge home - No longer hemolyzing, may follow up as outpatient - Records obtained from [facility] confirm hereditary spherocytosis and sickle cell trait - Outpatient surgery follow up for splenectomy
--- NOTE | 2016-04-05 07:55 | PN- Student ---
Subjective Subjective: History of Present Illness: Follow up visit for: Acute Gastroenteritis & Anemia. I followed up the patient today and he was sleeping comfortably. He didn't seem to be in any type of distress and didn't complained about any of the previous symptoms that he was admitted for. The patient mentioned that he is not having SOB on extertion and he is walking around the halls sporadically. He mentioned that the neck pain still bothering from time to time but at the present he doesn 't feels any pain. The patient wasn't coughing on the visit and denies any recent episodes of coughing as well. The patient denies any nause, diarrhea, abdominal cramps and constipation. Allergies/Medications: Allergies -No known allergies. Current Medications -No home medications Past Medical Hx: Travel History Patient denies any trips outside of the [facility]. Medical History Neurological- NONE Cardiovascular- NONE Hematology/Oncology- Hx of Hereditary Spherocytosis + Sickle Beta Thalasemia Trait Respiratory- NONE Gastrointestinal- NONE Hepatic- NONE Renal- NONE Psychiatric- NONE Endocrine- NONE Surgical History No surgeries Review of Systems: General: Patient is in proper attire, alert and without any signs of distress. The patient denies any chills, fever, weight loss and night sweats HEENT: Mild scleral Jaundice. Cardiovascular: NONE Respiratory: Refer to HPI. GI: NONE Genitourinary: NONE Skin: NONE Upper Limbs: NONE Lower Limbs: NONE MSK: NONE Objective Objective: Current Medications Sig/Addi Start time Last Medication Dose Route Stop Time Status Admin Folic Acid 1 MG DAILY 04/03 1000 AC 04/04 PO 0902 Guaifenesin/Codeine 10 ML Q6P PRN 04/04 0830 CAN Phosphate PO Guaifenesin/ 10 ML Q4P PRN 04/04 0830 AC 04/04 Dextromethorphan PO 0937 Ibuprofen 600 MG ONCE ONE 04/05 0245 DC 04/05 PO 04/05 0246 0303 Morphine Sulfate 2 MG Q8P PRN 04/02 1730 AC 04/04 IV 2155 Ondansetron HCl 4 MG Q8P PRN 04/02 2030 AC 04/05 IV 0151 Sodium Chloride 1,000 ML Q10H 04/02 1615 AC 04/05 IV 0420 Vital Signs Date Time Temp Pulse Resp B/P Pulse O2 O2 Flow FiO2 Ox Delivery Rate 04/05 0614 98.0 72 20 108/60 99 Room Air 04/04 2217 98.4 04/04 2208 98.4 67 20 124/82 99 Room Air 04/04 1515 98.3 64 20 132/70 96 Intake & Output 04/05 0800 04/05 0000 04/04 1600 Intake Total 1250 1180 1400 Output Total Balance 1250 1180 1400 Intake, IV 800 700 800 Intake, Oral 450 480 600 Number 1 1 Bowel Movements Patient 154 lb Weight Physical Examination: General: 21 y/o patient with no signs of distress, mild scleral jaundice and a refered-like pain to the left lateral aspect of the neck. HEENT: Mild scleral jaundice on both eyes. Neck: Not assessed Mouth: Not assessed Lungs: CV: GI: Not assessed Genitourinary: Not assessed MSK: Not assessed Upper Extremities: Not assessed Lower Extremities: Not assessed Neurological: Normal Speech. Results Results: Laboratory Tests 04/04/16 0650: Anion Gap 11, Estimated GFR > 60, BUN/Creatinine Ratio 12.5, Total Bilirubin 6.0 H, Direct Bilirubin 1.0 H, AST 48, ALT 32, Alkaline Phosphatase 45, Total Protein 6.4, Albumin 3.5, CBC w Diff MAN DIFF ORDERED, RBC 3.02 L, MCV 80.2, MCH 27.8, RDW 21.8 H, MPV 10.2, Gran % 63.1, Lymphocytes % 26.7, Monocytes % 9.5 H, Eosinophils % 0.4, Basophils % 0.3, Absolute Granulocytes 5.9, Segmented Neutrophils 58, Band Neutrophils 1, Absolute Lymphocytes 2.5, Lymphocytes 34, Monocytes 7, Absolute Monocytes 0.9 H, Absolute Eosinophils 0, Absolute Basophils 0, Nucleated RBCs 12 H, Platelet Estimate VERIFIED BY SMEAR, Poikilocytosis 1+, Anisocytosis 1+, Target Cells RARE, Ovalocytes FEW, PUBS MCHC 34.6 04/03/16 1810: CBC w Diff MAN DIFF ORDERED, RBC 3.03 L, MCV 80.3, MCH 27.7, RDW 20.7 H, MPV 9.8, Gran % 65.2, Lymphocytes % 27.9, Monocytes % 6.2, Eosinophils % 0.3, Basophils % 0.4, Absolute Granulocytes 5.8, Segmented Neutrophils 51, Absolute Lymphocytes 2.5, Lymphocytes 44, Monocytes 4, Absolute Monocytes 0.5, Absolute Eosinophils 0, Absolute Basophils 0, Metamyelocytes 1, Nucleated RBCs 18 H, Platelet Estimate ADEQUATE, Hypochromic-Microcytic 1+, Howell Cells 1+, PUBS MCHC 34.4 04/03/16 0609: Anion Gap 8, Estimated GFR > 60, BUN/Creatinine Ratio 13.8, Iron 39 L, TIBC 223 L, Ferritin 2660.0 H, Total Bilirubin 4.8 H, Direct Bilirubin 0.6 H, AST 63 H, ALT 23, Alkaline Phosphatase 41, Lactate Dehydrogenase 2215 H, Total Protein 6.6, Albumin 3.8, Vitamin B12 350, Folate 10.3, CBC w Diff MAN DIFF ORDERED, RBC 2.29 L, MCV 78.0 L, MCH 27.6, RDW 21.7 H, MPV 9.9, Gran % 47.9, Lymphocytes % 43.7, Monocytes % 7.5, Eosinophils % 0.2, Basophils % 0.7, Absolute Granulocytes 4.6, Segmented Neutrophils 43, Absolute Lymphocytes 4.2 H, Lymphocytes 50, Monocytes 7, Absolute Monocytes 0.7 H, Absolute Eosinophils 0, Absolute Basophils 0.1, Nucleated RBCs 14 H, Platelet Estimate ADEQUATE, Polychromasia 1 +, Poikilocytosis 1+, Anisocytosis 1+, Microcytic Cells 1+, Ovalocytes 1+, PUBS MCHC 35.3, Fld Total RBCs Counted 100 04/02/16 1801: Urine Color YEL, Urine Clarity CLEAR, Urine pH 6.5, Ur Specific [place] 1.010, Urine Protein TRACE H, Urine Ketones NEG, Urine Nitrite NEG, Urine Bilirubin NEG, Urine Urobilinogen 4.0 H, Ur Leukocyte Esterase NEG, Ur Microscopic SEDIMENT EXAMINED, Urine RBC 1-3, Urine WBC 1-3 H, Urine Hemoglobin SMALL H, Urine Glucose NEG 04/02/16 1051: Haptoglobin <15 L 04/02/16 1051: Anion Gap 11, Estimated GFR > 60, BUN/Creatinine Ratio 16.3, Glucose 99, Lactic Acid 1.0, Calcium 8.9, Total Bilirubin 4.6 H, Direct Bilirubin 0.8 H, AST 89 H, ALT 27, Alkaline Phosphatase 41, Lactate Dehydrogenase 2209 H, Total Protein 7.2, Albumin 4.3, Globulin 2.9, Albumin/Globulin Ratio 1.5, Amylase 65, Lipase 94, CBC w Diff NO MAN DIFF REQ, RBC 2.79 L, MCV 78.4 L, MCH 27.9, RDW 21.7 H, MPV 10.7 H, Gran % 72.4, Lymphocytes % 16.4 L, Monocytes % 10.4 H, Eosinophils % 0.6, Basophils % 0.2, Absolute Granulocytes 5.7, Absolute Lymphocytes 1.3, Absolute Monocytes 0.8 H, Absolute Eosinophils 0, Absolute Basophils 0, PUBS MCHC 35.6, Retic Count 5.49 H Microbiology 04/02 2234 BLOOD: Blood Culture - RES 04/02 2219 BLOOD: Blood Culture - RES 04/02 1609 STOOL: Cryptosporidium Antigen - CAN Cancelled: SPECIMEN NOT RECEIVED IN LABORATORY 04/02 161 STOOL: Giardia Antigen (MATTHEW) - CAN Cancelled: SPECIMEN NOT RECEIVED IN LABORATORY 04/02 161 STOOL: Stool Culture - CAN Cancelled: SPECIMEN NOT RECEIVED IN LABORATORY 04/02 1605 STOOL: Clostridium difficile Toxin A & B - CAN Cancelled: SPECIMEN NOT RECEIVED IN LABORATORY Assessment/Plan Assessment: Mr Regalado is a 21 y/o M that came in for multiple episodes of emesis and diarrhea associated with fever, muscle aches, chills and a dry cough. The patient has a history of Sickle Beta Thalasemia Trait + Hereditary Spherocytosis and presented with LUQ pain that radiates to the ipsilateral back and neck. The patient seems to be stable and his blood work showed improvement in the Hct levels. 1) Yesterday the patient was having a dry cough but today while visiting him he denied any cough at the moment. 2) The patient didn't had any episodes of SOB on exertion. 3) His vital signs are stable as well and the patient is a candidate for discharge since the improvement has been notable for >48 hours. 4) A splenectomy should be considered in this patient to improve quality of life; he has already received the capsulated organisms vaccines neccesary for immunological support if splenectomy is performed. Plan: 1) Prescribe the patient with Dextromethorphan to be taken if neccesary. 2) Continue follow up with hematology/oncology to assess status of his previously made Diagnosis (Refer to [facility]). 3) CMR can be filled up and the patient is ready for discharge. 4) Refer the patient to surgical consult to explore options on his splenic status. - Monitor regular diet response. - Monitor hematological laboratory findings.
--- NOTE | 2016-04-05 11:47 | Discharge Summary ---
Visit Information Visit Dates Admission Date: 04/04/16 Discharge Date: 04/05/16 Hospital Course Course Attending Physician: CHRISTINE ZAYAS MD Primary Care Physician: PATIENT HAS NO PRIMARY CARE DR Consulting Request: Consulting Specialty: Hematology/Oncology Consulting Physician: Reji Carlos MD Reason for Consult: Hereditory spherocytosis Hospital Course: Mr Regalado is a 21 year old pleasant gentleman with past medical history of heriditary spherocytosis, came into the emergency department with complaints of sore throat, nausea, vomiting, diarrhea, fever, SOB since 03/29/16 evening. At presentation, his temperature was 98.4, pulse rate 80, respiration 18, blood pressure 149/84, pulse oximetry 99% on room air. EKG was normal. Chest x-ray normal. Lab was significant for anemia with hemoglobin 7.8, hematocrit 21.8, MCV 78.4, MCH 27.9, RDW 21.7, platelet count 113, reticulocyte count 5.490. He was slightly hyponatremic with sodium 132, potassium 3.6, chloride 90, carbon dioxide 32, anion gap 11, BUN 13, creatinine 0.8, glucose 99. Further, liver function was slightly deranged with total bilirubin 4.6, direct bilirubin 0.8, AST 89, AST 27, ALP 41. Amylase and lipase were normal with 65, 94 respectively. Urine is normal, other than urine urobilinogen 4.0, small urine Hb, and trace urine protein. He was evaluated and managed at the general medical floor for the following issues: #Acute gastroenteritis His clinical picture with sudden onset of fever, nausea, vomiting, diarrhea is suggestive of acute gastroenteritis. He denied any sick contacts or eating outside, raw food, or anyone in the family having similar illness prior to him. He was very nauseated when he got admitted, could not hold anything by mouth, thus required IV fluids and IV antiemetic medications. He got better without any antibiotics from day 2 onwards. 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 He admitted to having shortness of breath after walking short distance, but denied any palpitation, chest pain, signs and symptoms of blood loss. He was jaundiced when he came in. On follow-up, his hemoglobin dropped from 7.8 to 6.3 overnight, requiring 2 pints of packed RBCs. He got two units of transfusion without any adverse reactions. Repeat hemoglobin was 8.4 after blood transfusion. Hematology service was consulted and he was advised about his condition, plan of management including splenectomy was discussed with him as well as his mother. Pneumococcal, meningococcal and Hib vaccines first dose was given. Next doses are in 2 months from now, and for pneumococcal vaccine the last dose is at least 5 years after 2 months from now. #Diet: Patient initially tolerated only clear liquid diet but was gradually advanced to full liquid in nature on to regular diet. At discharge, he is able to tolerate food without nausea or vomiting. #DVT prophylaxis was done by [facility] #He holds a full CODE STATUS. Complications: None Allergies: Coded Allergies: NO KNOWN ALLERGIES (04/27/13) Significant Procedures: None Pertinent Lab Results: 04/04/16 0650: Anion Gap 11, Estimated GFR > 60, BUN/Creatinine Ratio 12.5, Total Bilirubin 6.0 H, Direct Bilirubin 1.0 H, AST 48, ALT 32, Alkaline Phosphatase 45, Total Protein 6.4, Albumin 3.5, CBC w Diff MAN DIFF ORDERED, RBC 3.02 L, MCV 80.2, MCH 27.8, RDW 21.8 H, MPV 10.2, Gran % 63.1, Lymphocytes % 26.7, Monocytes % 9.5 H, Eosinophils % 0.4, Basophils % 0.3, Absolute Granulocytes 5.9, Segmented Neutrophils 58, Band Neutrophils 1, Absolute Lymphocytes 2.5, Lymphocytes 34, Monocytes 7, Absolute Monocytes 0.9 H, Absolute Eosinophils 0, Absolute Basophils 0, Nucleated RBCs 12 H, Platelet Estimate VERIFIED BY SMEAR, Poikilocytosis 1+, Anisocytosis 1+, Target Cells RARE, Ovalocytes FEW, PUBS MCHC 34.6 04/03/16 1810: CBC w Diff MAN DIFF ORDERED, RBC 3.03 L, MCV 80.3, MCH 27.7, RDW 20.7 H, MPV 9.8, Gran % 65.2, Lymphocytes % 27.9, Monocytes % 6.2, Eosinophils % 0.3, Basophils % 0.4, Absolute Granulocytes 5.8, Segmented Neutrophils 51, Absolute Lymphocytes 2.5, Lymphocytes 44, Monocytes 4, Absolute Monocytes 0.5, Absolute Eosinophils 0, Absolute Basophils 0, Metamyelocytes 1, Nucleated RBCs 18 H, Platelet Estimate ADEQUATE, Hypochromic-Microcytic 1+, Marielena Cells 1+, PUBS MCHC 34.4 04/03/16 0609: Sodium Pending, Potassium Pending, Chloride Pending, Carbon Dioxide Pending, Anion Gap Pending, BUN Pending, Creatinine Pending, BUN/Creatinine Ratio Pending , CBC w Diff Pending, WBC Pending, RBC Pending, Hgb Pending, Hct Pending, MCV Pending, MCH Pending, RDW Pending, Plt Count Pending, MPV Pending, PUBS MCHC Pending 04/02/16 1801: Urine Color YEL, Urine Clarity CLEAR, Urine pH 6.5, Ur Specific [place] 1.010, Urine Protein TRACE H, Urine Ketones NEG, Urine Nitrite NEG, Urine Bilirubin NEG, Urine Urobilinogen 4.0 H, Ur Leukocyte Esterase NEG, Ur Microscopic SEDIMENT EXAMINED, Urine RBC 1-3, Urine WBC 1-3 H, Urine Hemoglobin SMALL H, Urine Glucose NEG 04/02/16 1051: Haptoglobin Pending 04/02/16 1051: Anion Gap 11, Estimated GFR > 60, BUN/Creatinine Ratio 16.3, Glucose 99, Lactic Acid 1.0, Calcium 8.9, Total Bilirubin 4.6 H, Direct Bilirubin 0.8 H, AST 89 H, ALT 27, Alkaline Phosphatase 41, Total Protein 7.2, Albumin 4.3, Globulin 2.9 , Albumin/Globulin Ratio 1.5, Amylase 65, Lipase 94, CBC w Diff NO MAN DIFF REQ, RBC 2.79 L, MCV 78.4 L, MCH 27.9, RDW 21.7 H, MPV 10.7 H, Gran % 72.4, Lymphocytes % 16.4 L, Monocytes % 10.4 H, Eosinophils % 0.6, Basophils % 0.2, Absolute Granulocytes 5.7, Absolute Lymphocytes 1.3, Absolute Monocytes 0.8 H, Absolute Eosinophils 0, Absolute Basophils 0, [facility] MCHC 35.6, Retic Count 5.49 H SERVICE DATE: 04/02/16-160 EXAM TYPE: US - US-COMPLETE ABDOMEN US ABDOMEN COMPLETE CLINICAL INFORMATION: Abdominal pain.. COMPARISON: None available. TECHNIQUE: Real-time imaging of the abdominal viscera. FINDINGS: PANCREAS: Pancreatic body and tail are obscured by bowel gas. The remainder of the pancreas is unremarkable. ABDOMINAL AORTA: The proximal segment is normal in caliber. INFERIOR VENA CAVA: Visualized portions are normal. LIVER: Normal. The liver demonstrates normal size, contour and echogenicity. No focal lesion or intrahepatic biliary duct dilatation. GALLBLADDER: The gallbladder is contracted and limitedly assessed. There is echogenic bile within the gallbladder lumen. No pericholecystic fluid. No tenderness within the gallbladder fossa. Gallbladder wall thickness is not diagnostically assessed secondary to gallbladder contraction. COMMON BILE DUCT: Normal in caliber measuring 0.3 cm in diameter. RIGHT KIDNEY: Normal. No hydronephrosis. No renal calculi or focal parenchymal lesions. The kidney measures 11.5 cm in maximum dimension. LEFT KIDNEY: Normal. No hydronephrosis. No renal calculi or focal parenchymal lesions. The kidney measures 14.0 cm in maximum dimension. SPLEEN: The spleen is enlarged and measures 15.5 cm in maximum dimension. Splenic echogenicity appears normal. FREE FLUID: None. IMPRESSION: - Limited assessment of the gallbladder as the patient just ate. There is gallbladder sludge without definite sonographic evidence of acute cholecystitis. - Splenomegaly. DICTATED BY: LAURA MORA MD DATE/TIME DICTATED:04/02/161651 CONTRACTING SUPPORT SPECIALIST:TOPHER DATE/TIME TRANSCRIBED:04/02/161651 -------- SERVICE DATE: 04/02/16 EXAM TYPE: RAD - XRY-CHEST XRAY, PA AND LATERAL EXAMINATION: XR CHEST CLINICAL INFORMATION: Bilateral crackles with difficulty breathing COMPARISON: None. TECHNIQUE: PA and lateral views of the chest were obtained. FINDINGS: No significant abnormality is noted involving the heart, lungs, mediastinum, bony thorax, or soft tissues. IMPRESSION: No acute disease. DICTATED BY: LINDSAY LAMBERT MD DATE/TIME DICTATED:04/02/161835 CONTRACTING SUPPORT SPECIALIST:TOPHER DATE/TIME TRANSCRIBED:04/02/161835 Disposition Summary Disposition Principal Diagnosis: Acute gastroenteritis Acute hemolytic anemia from Hereditary Spherocytosis Additional Diagnosis: Hereditary Spherocytosis Discharge Disposition: home or self care Discharge Instructions General Discharge Information Code Status: Full Code Patient's Diet: Heart healthy, regular diet Patient's Activity: As tolerated Follow-Up Instructions/Appts: Please visit a primary care physician (PCP) within 7 days of discharge. Please follow-up with warp clamper (blood doctor) after you get discharged. Please follow-up with surgery Dr. Arteaga, after you get discharged. The follow-up contacts have been provided below. Please return to emergency if symptoms worsen, including but not limited to, chest pain, shortness of breath, palpitation, dizziness, passing out, worsening jaundice (yellowish discoloration of high/skin), pain abdomen, persistent nausea , vomiting. Medications at Discharge Discharge Medications: Start taking the following new medications: Guaifenesin/Dextromethorphan (Guaifenesin Dm Syrup) 100 MG-10 MG/5 ML SYRUP 10 Milliliters ORAL EVERY 6 HOURS NEEDED as needed for COUGH MEDICATION Days = 7 No Refills Comments: Last Taken: 04/04/16 Time: 9 AM Folic Acid (Folic Acid) 1 MG TABLET 1 Milligram ORAL DAILY Qty = 30 Refills = 1 Instructions: NEED TO CONTINUE TAKING IT ONCE DAILY. Comments: Last Taken: 04/05/16 Time: 9 AM Copies To: GUANACO GONZALEZ,REJI
[2016-04-05] MEDS ORDERED: FOLIC ACID1 M1 PO (11:58)
[2016-04-05] MEDS ORDERED: GUAIFENESIN DM S5 ML PO (11:58)
== END 2016-04-05 15:00 | DRG 392 ==
LOC: ERH 10:02 → ERHI 17:01 → 2NA 04-03 19:24 → ENPENDDIS 04-04 08:52 → 2NA 04-04 09:04
PROVIDERS: Internal Medicine; Physician Assistant Medical; ADMIT Hospitalist
PROC: 30233N1 Transfusion of Nonautologous Red Blood Cells into Peripheral Vein, Percutaneous Approach (ICD-10-PCS; principal; 2016-04-04)
DX: K52.9 Noninfective gastroenteritis and colitis, unspecified (principal); E87.1 Hypo-osmolality and hyponatremia; D58.8 Other specified hereditary hemolytic anemias; D58.0 Hereditary spherocytosis; F17.210 Nicotine dependence, cigarettes, uncomplicated
CPT/HCPCS: 2NAP; 36415; 81001; 82436; 83010; 86920; 87040; 87045; 87328; 87329; 87804; 87804-59; 90732; 93005; 93010; 96361; 96374; J2405; J3490; P9016; Q2036